=== PATIENT | female | born 1960 | race American Indian/Alaskan Native ===

== ENCOUNTER 2018-10-19 16:26 | Outpatient (CLI) | payer MEDICAID | END 2018-10-19 16:27 | disposition home or self-care (01) | LOC: RAD 16:26 ==

== ENCOUNTER 2018-10-20 18:17 | Inpatient (IN) | payer MEDICAID ==
[2018-10-20 18:36] VITALS: BMI 25.7
--- NOTE | 2018-10-20 18:49 | ED PDOC ---
Arrival/HPI - General Chief Complaint: GI Problem Time Seen by Provider: 10/20/18 18:18 Historian: Patient - History of Present Illness Narrative History of Present Illness (Text): 10/20/18 18:47 58 y/o female with PMH of colon cancer (s/p resection and colostomy) presents to the Emergency department send by PMD Dr. Augustin for evaluation of small bowel obstruction as seen on Xray that was done yesterday. Pt states she has had bertin re epigastric abdominal pain with associated vomiting for approx 1 week. Last episode of vomiting this morning. Associated bloating and decreased ostomy output. Denies fever, chills, back pain, chest pain, SOB, cough, urinary symptoms, or any other associated symptoms. Past Medical History - Provider Review Nursing Documentation Reviewed: Yes - Infectious Disease Hx of Infectious Diseases: None - Cardiac Hx Pacemaker: No - Pulmonary Hx Pneumonia: Yes - Neurological Hx Neurological Disorder: Yes Other/Comment: Reflex dystrophy syndrome - HEENT Hx HEENT Disorder: Yes - Hematological/Oncological Hx Blood Transfusions: Yes Hx Blood Transfusion Reaction: No - Musculoskeletal/Rheumatological Hx Back Pain: Yes (pain both hips radiating to lower extremeties) Hx Falls: No - Gastrointestinal Other/Comment: colostomy 2011 - Genitourinary/Gynecological Hx Genitourinary Disorders: No - Psychiatric Hx Substance Use: Yes (narcotic dependency) - Surgical History Hx Cholecystectomy: Yes Hx Hysterectomy: Yes (partial) Other/Comment: + colostomy - Anesthesia Hx Anesthesia: Yes Hx Anesthesia Reactions: No Hx Malignant Hyperthermia: No Family/Social History - Physician Review Nursing Documentation Reviewed: Yes Family/Social History: No Known Family HX Smoking Status: Never Smoked Hx Alcohol Use: No Hx Substance Use: Yes (narcotic dependency) Allergies/Home Meds Allergies/Adverse Reactions: Allergies Penicillins Allergy (Severe, Verified 10/20/18 18:36) SHORTNESS OF BREATH Sulfa (Sulfonamide Antibiotics) Allergy (Severe, Verified 10/20/18 18:36) SHORTNESS OF BREATH banana Allergy (Mild, Verified 10/20/18 18:36) NAUSEA lactose Allergy (Mild, Verified 10/20/18 18:36) ITCHING Home Medications: Home Meds Medication Instructions Recorded Confirmed Gabapentin [Neurontin] 600 mg PO QID 09/19/15 10/20/18 Amitriptyline [Elavil] 25 mg PO DAILY 03/26/16 10/20/18 Zolpidem [Ambien] 10 mg HS 03/26/16 10/20/18 Methadone 30 mg PO QID 10/20/18 10/20/18 Oxycodone HCl [Roxicodone] 30 mg PO QID 10/20/18 10/20/18 Review of Systems - Review of Systems Constitutional: Normal. absent: Fevers Eyes: Normal. absent: Vision Changes ENT: Normal. absent: Sore Throat, Sinus Congestion Respiratory: Normal. absent: SOB, Cough Cardiovascular: Normal. absent: Chest Pain, Palpitations Gastrointestinal: Abdominal Pain, Stool Changes, Nausea, Vomiting, Appetite Changes Genitourinary Female: Normal. absent: Dysuria, Frequency, Vaginal Bleeding, Vaginal Discharge Musculoskeletal: Normal Skin: Normal Neurological: Normal Endocrine: Normal Hemo/Lymphatic: Normal Psychiatric: Normal Physical Exam Vital Signs Reviewed: Yes Vital Signs Temp Pulse Resp BP Pulse Ox 10/20/18 18:41 98.5 F 93 H 18 119/79 98 Temperature: Afebrile Blood Pressure: Normal Pulse: Regular Respiratory Rate: Normal Appearance: Positive for: Non-Toxic, Uncomfortable Pain Distress: Mild Mental Status: Positive for: Alert and Oriented X 3 - Systems Exam Head: Present: Atraumatic, Normocephalic Pupils: Present: PERRL Extroacular Muscles: Present: EOMI Conjunctiva: Present: Normal Mouth: Present: Moist Mucous Membranes Neck: Present: Normal Range of Motion Respiratory/Chest: Present: Clear to Auscultation. No: Respiratory Distress, Accessory Muscle Use Cardiovascular: Present: Regular Rate and Rhythm, Normal S1, S2, Peripheal Pulses Present Abdomen: Present: Tenderness (epigastrically), Distention, Guarding (throughout), Ostomy Tubes (rightsided ostomy without signs of infection; no output in ostomy bag). No: Normal Bowel Sounds (high pitched, intermittent) Back: Present: Normal Inspection. No: CVA Tenderness Upper Extremity: Present: Normal Inspection, Normal ROM, NORMAL PULSES, Neurovascularly Intact, Capillary Refill < 2s. No: Cyanosis, Edema, Temperature Abnormalties Lower Extremity: Present: Normal Inspection, NORMAL PULSES, Normal ROM, Neurovascularly Intact, Capillary Refill < 2 s. No: Edema, Temperature Abnormalties Neurological: Present: GCS=15, Speech Normal, Motor Func Grossly Intact, Normal Sensory Function Skin: Present: Warm, Dry, Normal Color. No: Rashes Psychiatric: Present: Alert, Oriented x 3, Normal Insight, Normal Concentration, Normal Affect, Normal Mood Medical Decision Making ED Course and Treatment: Initial Plan: * CBC, CMP * Lipase * Troponin * CT Abd/Pelvis with PO and IV contrast * Toradol * Surgical consult 10/20/18 19:55 Pt refused NG tube. Risks vs benefits discussed with pt. Pt continues to refuse. Surgical team requesting CT with PO and IV contrast in addition to UDS. 10/20/18 20:47 Pt drinking PO contrast. Toradol ordered for pain 10/21/18 01:01 CT significant for partial small bowel obstruction. Spoke with primary Dr. Perez Augustin who accepted patient on to his service with diagnosis of partial small bowel obstruction to med/surg floor. Requests IVF. Surgical consult to Dr. Child. - Lab Interpretations Lab Results: 10/20/18 19:15 10/20/18 19:15 Lab Results 10/20/18 20:30: Procalcitonin < 0.05 L 10/20/18 19:15: Sodium 141, Potassium 3.7, Chloride 103, Carbon Dioxide 28, Anion Gap 13, BUN 11, Creatinine 0.6 L, Est GFR ( Amer) > 60, Est GFR (Non-Af Amer) > 60, Random Glucose 78, Calcium 9.4, Magnesium 2.0, Total Bilirubin 0.5, AST 30, ALT 10, Alkaline Phosphatase 73, Troponin I < 0.01, Total Protein 7.9, Albumin 4.0, Globulin 3.9, Albumin/Globulin Ratio 1.0 L, Lipase 49 10/20/18 19:15: PT 12.8 H, INR 1.15, APTT 39.3 H 10/20/18 19:15: WBC 9.4, RBC 4.87, Hgb 11.9 L, Hct 39.3, MCV 80.7, MCH 24.4 L, MCHC 30.3 L, RDW 14.8 H, Plt Count 273, MPV 10.9, Neut % (Auto) 54.4, Lymph % (Auto) 37.9 H, Bradley % (Auto) 6.4 H, Eos % (Auto) 1.1 L, Baso % (Auto) 0.2, Lymph # (Auto) 3.6 H, Bradley # (Auto) 0.6, Eos # (Auto) 0.1, Baso # (Auto) 0.02, Absolute Neuts (auto) 5.14 I have reviewed the lab results: Yes - RAD Interpretation Narrative RAD Interpretations (Text): CT Abdomen and Pelvis: Surgical changes of the colon, unchanged. Right lower quadrant colostomy, unchanged. Partial small bowel obstruction with a transition zone in the right lower quadrant. Passage of the contrast in the distal small bowel is excluding the possibility of a complete obstruction. No evidence of bowel perforation or pneumatosis intestinalis. Diffuse thickening of the distal colon can be secondary to underdistention, spasm versus colitis. 1.5 cm right renal simple cyst. The liver is of uniform attenuation without mass or defect. There is no intra or extrahepatic biliary ductal dilatation. The spleen is normal. The gallbladder is within normal limits. The pancreas is of normal contour and attenuation characteristics. There is no evidence of adrenal mass. Both kidneys demonstrate prompt and equal nephrograms. The kidneys are normal in size, shape and configuration. There is no evidence of renal or ureteral mass. No renal or ureteral calculi are identified. There is no hydroureter or hydronephrosis. No evidence for appendicitis. There is no evidence of abdominal ascites or lymphadenopathy. There is no evidence of intrinsic or extrinsic bladder mass. There is no pelvic ascites or lymphadenopathy. Images of the lung bases show no evidence of pleural or parenchymal mass. There are no pleural effusions. The bony structures are free of lytic or blastic lesions. IMPRESSION: Surgical changes of the colon, unchanged. Right lower quadrant colostomy, unchanged. Partial small bowel obstruction with a transition zone in the right lower quad rant. Passage of the contrast in the distal small bowel is excluding the possibility of a complete obstruction. No evidence of bowel perforation or pneumatosis intestinalis. Diffuse thickening of the distal colon can be secondary to underdistention, spasm versus colitis. 1.5 cm right renal simple cyst. Electronically signed on Oct 21, 2018 12:40:12 AM EDT by: Antonio Chaney M.D., Certified by ABR, MSK, Neuroradiology Die Holder: Radiologist - EKG Interpretation EKG Interpretation (Text): Rate 85; NSR; Normal intervals; No STEMI, nonspecific ST/T wave changes Interpreted by ED Physician: Yes Type: 12 lead EKG Disposition/Present on Arrival - Present on Arrival Any Indicators Present on Arrival: Yes History of DVT/PE: Yes History of Uncontrolled Diabetes: No Urinary Catheter: No History of Decub. Ulcer: No History Surgical Site Infection Following: None - Disposition Have Diagnosis and Disposition been Completed?: Yes Diagnosis: Small bowel obstruction Disposition: HOSPITALIZED Disposition Time: 01:00 Patient Plan: Admission Condition: STABLE
[2018-10-20 19:30] LABS: BASO # 0.02 K/mm3 (0.0-2.0); BASO % 0.2 % (0.0-3.0); EOS # 0.1 (0.0-0.7); EOS % 1.1 % (1.5-5.0); HEMOGLOBIN 11.9 g/dL (12.0-16.0); LYMPH # 3.6 (1.2-3.4); LYMPH % 37.9 % (22.0-35.0); MEAN CELL VOLUME 80.7 fl (80.0-105.0); MEAN CORPUSCULAR HEMOGLOBIN 24.4 pg (25.0-35.0); MEAN CORPUSCULAR HGB CONC 30.3 g/dl (31.0-37.0); MEAN PLATELET VOLUME 10.9 fl (7.0-11.0); MONO # 0.6 (0.1-0.6); MONO % 6.4 % (1.0-6.0); RBC 4.87 10^6/uL (3.5-6.1); RED CELL DISTRIBUTION WIDTH 14.8 % (11.5-14.5); WHITE BLOOD COUNT 9.4 10^3/uL (4.5-11.0)
[2018-10-20 19:38] LABS: ALT/SGPT 10 U/L (7-56); AST/SGOT 30 U/L (14-36); BLOOD UREA NITROGEN 11 mg/dL (7-21); CALCIUM 9.4 mg/dL (8.4-10.5); GFR NON-AFRICAN AMERICAN > 60; LIPASE 49 U/L (23-300)
[2018-10-20 19:41] LABS: INR 1.15; PARTIAL THROMBOPLASTIN TIME 39.3 Seconds (26.9-38.3); PROTHROMBIN TIME 12.8 SECONDS (9.4-12.5)
[2018-10-20 19:50] LABS: TROPONIN I < 0.01 ng/mL
[2018-10-20] MEDS ORDERED: Lactated Ringer's 1,000 ML IV SCH (20:30)
[2018-10-20] MEDS ORDERED: Iohexol 350 MG/100 ML VIAL ONE (20:36)
[2018-10-20] MEDS ORDERED: Iohexol 240 (50 ml) ONE (20:42)
--- NOTE | 2018-10-21 00:07 | CP.PCM.CON ---
<Kirby Nelson - Last Filed: 10/21/18 07:40> History of Present Illness - History of Present Illness History of Present Illness: General Surgery: Dr Child Pt is a 58F well known to surgical service. She has a history of RSD, as well as colon cancer (s/p resection and end colostomy). Pt also has a spinal cord stimulator and has been on longterm narcotics including Oxycodone 30mg Q6H and Methadone 30mg Q6H (per pt). She currently presents with obstruction and obstipation. Pt reports she has been getting progressively more distended since last sunday 10/15. She has not produced stool or gas from her ostomy since wednesday 10/18. During this time she had several episodes of billious emesis. She has not had emesis for past 48 hours however has been unable to eat since tuesday. Pt no longer passes stool from rectum. Prior to this episode pt had daily output from ostomy. She describes her pain as diffuse, located throughout the entire abdomen with the main focus being surrounding the ostomy. LMP unknown, currently menopausal. Pt offered NGT at bedside. She declined. I explained to the pts the benefits of NGT decompression, how this can prevent bowel ischemia, need for operation, and can often resolve the SBO. I also explained the risk of aspiration if she continues to vomit. Pt agreed to take NGT if vomits or does not clinically progress. Review of Systems - Review of Systems All systems: reviewed and no additional remarkable complaints except (as per hpi) Past Patient History - Infectious Disease Hx of Infectious Diseases: None - Past Medical History & Family History Past Medical History?: Yes - Past Social History Smoking Status: Never Smoked - CARDIAC Hx Pacemaker: No - PULMONARY Hx Pneumonia: Yes - NEUROLOGICAL Hx Neurological Disorder: Yes Other/Comment: Reflex dystrophy syndrome - HEENT Hx HEENT Problems: Yes - HEMATOLOGICAL/ONCOLOGICAL Hx Blood Transfusions: Yes Hx Blood Transfusion Reaction: No - MUSCULOSKELETAL/RHEUMATOLOGICAL Hx Back Pain: Yes (pain both hips radiating to lower extremeties) Hx Falls: No - GASTROINTESTINAL Other/Comment: colostomy 2011 - GENITOURINARY/GYNECOLOGICAL Hx Genitourinary Disorders: No - PSYCHIATRIC Hx Substance Use: Yes (narcotic dependency) - SURGICAL HISTORY Hx Cholecystectomy: Yes Hx Hysterectomy: Yes (partial) Other/Comment: + colostomy - ANESTHESIA Hx Anesthesia: Yes Hx Anesthesia Reactions: No Hx Malignant Hyperthermia: No Meds Allergies/Adverse Reactions: Allergies Allergy/AdvReac Type Severity Reaction Status Date / Time Penicillins Allergy Severe SHORTNESS Verified 10/20/18 18:36 OF BREATH Sulfa (Sulfonamide Allergy Severe SHORTNESS Verified 10/20/18 18:36 Antibiotics) OF BREATH banana Allergy Mild NAUSEA Verified 10/20/18 18:36 lactose Allergy Mild ITCHING Verified 10/20/18 18:36 - Medications Medications: Current Medications Lactated Ringer's (Lactated Ringer's) 1,000 mls @ 100 mls/hr IV .Q10H MARTHA Last Admin: 10/20/18 21:01 Dose: 100 mls/hr Ondansetron HCl (Zofran Inj) 4 mg IVP Q4H PRN PRN Reason: Nausea/Vomiting Last Admin: 10/20/18 21:02 Dose: 4 mg Physical Exam - Constitutional Appears: Non-toxic, No Acute Distress - Head Exam Head Exam: NORMAL INSPECTION - ENT Exam ENT Exam: Normal Exam - Respiratory Exam Respiratory Exam: absent: Respiratory Distress - Cardiovascular Exam Cardiovascular Exam: absent: Tachycardia, REGULAR RHYTHM - GI/Abdominal Exam GI & Abdominal Exam: Distended, Firm, Soft, Tenderness (diffuse, worse in LUQ). absent: Guarding, Hernia, Mass, Rebound, Rigid - Extremities Exam Extremities exam: Negative for: pedal edema - Psychiatric Exam Psychiatric exam: Normal Affect, Normal Mood - Skin Skin Exam: Normal Color, Warm Results - Vital Signs Recent Vital Signs: Last Vital Signs Temp 97.6 F 10/21/18 00:00 Pulse 81 10/21/18 00:00 Resp 16 10/21/18 00:00 BP 105/61 10/21/18 00:00 Pulse Ox 98 10/21/18 00:00 - Labs Result Diagrams: 10/20/18 19:15 10/20/18 19:15 Labs: Laboratory Results - last 24 hr 10/20/18 10/20/18 10/20/18 19:15 19:15 19:15 WBC 9.4 RBC 4.87 Hgb 11.9 L Hct 39.3 MCV 80.7 MCH 24.4 L MCHC 30.3 L RDW 14.8 H Plt Count 273 MPV 10.9 Neut % (Auto) 54.4 Lymph % (Auto) 37.9 H Will % (Auto) 6.4 H Eos % (Auto) 1.1 L Baso % (Auto) 0.2 Lymph # (Auto) 3.6 H Will # (Auto) 0.6 Eos # (Auto) 0.1 Baso # (Auto) 0.02 Absolute Neuts (auto) 5.14 PT 12.8 H INR 1.15 APTT 39.3 H Sodium 141 Potassium 3.7 Chloride 103 Carbon Dioxide 28 Anion Gap 13 BUN 11 Creatinine 0.6 L Est GFR ( Amer) > 60 Est GFR (Non-Af Amer) > 60 Random Glucose 78 Calcium 9.4 Magnesium 2.0 Total Bilirubin 0.5 AST 30 ALT 10 Alkaline Phosphatase 73 Troponin I < 0.01 Total Protein 7.9 Albumin 4.0 Globulin 3.9 Albumin/Globulin Ratio 1.0 L Lipase 49 Assessment & Plan - Assessment and Plan (Free Text) Assessment: 58F w/ SBO Plan: admit NPO will place NGT IVF tox screen will consider Relistor given possibility of OIC pt may need OR if does not clinically improve case and imaging reviewed w/ Dr Mateusz Nelson, PGY4 <Perez Child - Last Filed: 10/23/18 20:54> Meds - Medications Medications: Current Medications Potassium Chloride 20 meq/ (Dextrose/Sodium Chloride) 1,010 mls @ 125 mls/hr IV .Q8H5M [facility] Last Admin: 10/23/18 18:46 Dose: 125 mls/hr Ketorolac Tromethamine (Toradol) 30 mg IVP Q8 [facility] Last Admin: 10/23/18 14:12 Dose: Not Given Methadone HCl (Methadone) 20 mg PO BID [facility] Last Admin: 10/23/18 18:47 Dose: 20 mg Metoclopramide HCl (Reglan) 10 mg IVP ACHS [facility] Last Admin: 10/23/18 18:46 Dose: 10 mg Ondansetron HCl (Zofran Inj) 4 mg IVP Q4H PRN PRN Reason: Nausea/Vomiting Last Admin: 10/22/18 23:33 Dose: 4 mg Results - Vital Signs Recent Vital Signs: Last Vital Signs Temp 97.9 F 10/23/18 06:00 Pulse 68 10/23/18 06:00 Resp 18 10/23/18 06:00 BP 118/64 10/23/18 06:00 Pulse Ox 99 10/23/18 06:00 - Labs Result Diagrams: 10/21/18 09:30 10/21/18 09:30 Assessment & Plan - Assessment and Plan (Free Text) Plan: Dx PSBO complicated by SEVERE Chr Constipation(20Yrs) & Opiod Rx(120 oxycocone/120 Methadone) NGT CANNOT pass the posterior choanae(Nose) due to stenosis Some stool in stoma bag--Attempt conservative RX for now This consult done under my direct supervision Lizeth Child MD FACS
[2018-10-21] MEDS ORDERED: Morphine 2 mg/ml ISec IVP STA ×2 (00:49→08:28)
--- NOTE | 2018-10-21 01:21 | CP.PCM.PCO ---
Physician Communication Note - Physician Communication Note Physician Communication Note: SBO/Severe chr constipation/NPO-Observe-? OR PRN
[2018-10-21] MEDS ORDERED: Potassium Ch 20mEq in D5W 20 ML in Dextrose 5%/0.9% NS 1,000 ML IV SCH (08:00)
--- NOTE | 2018-10-21 08:25 | RAD ---
Date of service: 10/20/2018 HISTORY: abd pain COMPARISON: 02/26/2012 TECHNIQUE: 1 view obtained. FINDINGS: LUNGS: No active pulmonary disease. PLEURA: No significant pleural effusion identified, no pneumothorax apparent. CARDIOVASCULAR: No aortic atherosclerotic calcification present. Normal cardiac size. No pulmonary vascular congestion. OSSEOUS STRUCTURES: No significant abnormalities. VISUALIZED UPPER ABDOMEN: Normal. OTHER FINDINGS: None. IMPRESSION: No active disease.
[2018-10-21] MEDS: Potassium Chloride 20 MEQ in Dextrose 5%/0.9% NS 1,000 ML IV SCH ×2 (08:46→17:42)
[2018-10-21] MEDS ORDERED: Lidocaine 2% Jelly (Uro-Jet) TOP ONE (09:46)
[2018-10-21 09:57] LABS: AMYLASE 53 U/L (35-125); BLOOD UREA NITROGEN 9 mg/dL (7-21); CALCIUM 9.1 mg/dL (8.4-10.5); GFR NON-AFRICAN AMERICAN > 60
[2018-10-21] MEDS ORDERED: Lidocaine 2% Jelly (30 ml) TOP ONE (10:15)
[2018-10-21 10:16] LABS: BASO # 0.02 K/mm3 (0.0-2.0); BASO % 0.3 % (0.0-3.0); EOS # 0.1 (0.0-0.7); EOS % 1.7 % (1.5-5.0); HEMOGLOBIN 11.3 g/dL (12.0-16.0); LYMPH # 2.4 (1.2-3.4); LYMPH % 39.8 % (22.0-35.0); MEAN CELL VOLUME 80.5 fl (80.0-105.0); MEAN CORPUSCULAR HEMOGLOBIN 24.8 pg (25.0-35.0); MEAN CORPUSCULAR HGB CONC 30.8 g/dl (31.0-37.0); MEAN PLATELET VOLUME 10.7 fl (7.0-11.0); MONO # 0.4 (0.1-0.6); MONO % 5.9 % (1.0-6.0); RBC 4.56 10^6/uL (3.5-6.1); RED CELL DISTRIBUTION WIDTH 14.7 % (11.5-14.5); WHITE BLOOD COUNT 5.9 10^3/uL (4.5-11.0)
[2018-10-21] MEDS: Sodium Chloride 0.9% 1,000 ML IV SCH ×2 (13:17→22:19)
--- NOTE | 2018-10-21 14:25 | CT ---
Date of service: 10/20/2018 PROCEDURE: CT Abdomen and Pelvis with contrast HISTORY: SBO COMPARISON: CT 09/19/2015 TECHNIQUE: Contrast dose: 100 cc of Omni 350 Radiation dose: Total exam DLP = 298.1 mGy-cm. This CT exam was performed using one or more of the following dose reduction techniques: Automated exposure control, adjustment of the mA and/or kV according to patient size, and/or use of iterative reconstruction technique. FINDINGS: LOWER THORAX: Unremarkable. LIVER: Unremarkable. No gross lesion or ductal dilatation. GALLBLADDER AND BILE DUCTS: Unremarkable. PANCREAS: Unremarkable. No gross lesion or ductal dilatation. SPLEEN: Unremarkable. ADRENALS: Unremarkable. No mass. KIDNEYS AND URETERS: Unremarkable. No hydronephrosis. No solid mass. VASCULATURE: Unremarkable. No aortic aneurysm. No aortic atherosclerotic calcification or mural plaque present. BOWEL: Right upper quadrant colostomy. There is a partial small bowel obstruction with dilatation of the proximal small bowel. Distal small bowel loops are normal in caliber. The exact transition point is difficult to establish. APPENDIX: Normal appendix. PERITONEUM: Unremarkable. No free fluid. No free air. LYMPH NODES: Unremarkable. No enlarged lymph nodes. BLADDER: Unremarkable. REPRODUCTIVE: Unremarkable. BONES: No acute fracture. OTHER FINDINGS: The report concurs with the preliminary [facility] report IMPRESSION: Right upper quadrant colostomy. There is a partial small bowel obstruction with dilatation of the proximal small bowel. Distal small bowel loops are normal in caliber. The exact transition point is difficult to establish.
[2018-10-21 15:55] LABS: PH,URINE 6.5 (4.7-8.0); URINE BILIRUBIN NEGATIVE (NEGATIVE); URINE BLOOD NEGATIVE (NEGATIVE); URINE GLUCOSE (UA) NEGATIVE (NEGATIVE); URINE LEUKOCYTE ESTERASE TRACE Leu/uL (NEGATIVE); URINE PROTEIN NEGATIVE mg/dL (<30 mg/dL); URINE UROBILINOGEN 0.2 E.U./dL (<1 E.U./dL)
[2018-10-21 15:57] LABS: URINE APPEARANCE CLEAR (CLEAR); URINE COLOR LIGHT YELLOW (YELLOW)
[2018-10-21 16:11] LABS: PHENCYCLIDINE, UR NEGATIVE (NEGATIVE)
[2018-10-21 16:14] LABS: BARBITURATES, UR NEGATIVE (NEGATIVE); BENZODIAZEPINES, UR NEGATIVE (NEGATIVE); OPIATES, UR POSITIVE (NEGATIVE)
--- NOTE | 2018-10-21 17:35 | CP.PCM.HP ---
History of Present Illness - History of Present Illness History of Present Illness: History and Physical: 58 yo AA female with lack of colostomy output and vomiting episodes for the past week. The patient was seen on 10/19/2018 and given script for Abdominal X-ray. [place] [facility] [place] showed possible SBO. Patient was told to go to the hospital for further evaluation and especially by surgery. CT done showing partial small bowel obstruction with dilatation of the proximal small bowel. She was told to stop her pain medications on . Normally she is on two pain medications, methadone and oxycodone. 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 Dr. Perez Child performed the colostomy many years ago which resolved her blood pressure and diabetes issues at that time. She has not required treatment for diabetes or hypertension since the colostomy. PMHx: Spinal injuries, reflex sympathetic dystrophy, prior diabetes mellitus that corrected after colostomy PSHx: Colostomy, prior hernia repair, uterine surgery, partial hysterectomy, previous spinal cord stimulator. Allergies: PCN, Sulfa Social Hx: No tobacco, EtOH, or illicit drug use. Active Medications Sodium Chloride (Sodium Chloride 0.9%) 1,000 mls @ 100 mls/hr IV .Q10H [facility] Last Admin: 10/21/18 13:17 Dose: Not Given Potassium Chloride 20 meq/ (Dextrose/Sodium Chloride) 1,010 mls @ 125 mls/hr IV .Q8H5M [facility] Last Admin: 10/21/18 08:46 Dose: 125 mls/hr Ketorolac Tromethamine (Toradol) 30 mg IVP Q8 [facility] Last Admin: 10/21/18 13:29 Dose: 30 mg Ondansetron HCl (Zofran Inj) 4 mg IVP Q4H PRN PRN Reason: Nausea/Vomiting Last Admin: 10/21/18 08:46 Dose: 4 mg Family Hx: none given ROS: No fevers, chills, melena, hematuria, hamtemesis, hematochezia, and diarrhea. Patient with nausea and vomiting. Patient with abdominal discomfort. No chest pain. No depression or anxiety. No vision loss, hearing loss, or loss of consciousness. Present on Admission - Present on Admission Any Indicators Present on Admission: No Review of Systems - Gastrointestinal Gastrointestinal: Change in Bowel Habits Past Patient History - Infectious Disease Hx of Infectious Diseases: None - Past Medical History & Family History Past Medical History?: Yes - Past Social History Smoking Status: Never Smoked - CARDIAC Hx Pacemaker: No - PULMONARY Hx Pneumonia: Yes - NEUROLOGICAL Hx Neurological Disorder: Yes Other/Comment: Reflex dystrophy syndrome - HEENT Hx HEENT Problems: Yes - HEMATOLOGICAL/ONCOLOGICAL Hx Blood Transfusions: Yes Hx Blood Transfusion Reaction: No - MUSCULOSKELETAL/RHEUMATOLOGICAL Hx Back Pain: Yes (pain both hips radiating to lower extremeties) Hx Falls: No - GASTROINTESTINAL Other/Comment: colostomy 2011 - GENITOURINARY/GYNECOLOGICAL Hx Genitourinary Disorders: No - PSYCHIATRIC Hx Substance Use: Yes (narcotic dependency) - SURGICAL HISTORY Hx Cholecystectomy: Yes Hx Hysterectomy: Yes (partial) Other/Comment: + colostomy - ANESTHESIA Hx Anesthesia: Yes Hx Anesthesia Reactions: No Hx Malignant Hyperthermia: No Meds Allergies/Adverse Reactions: Allergies Allergy/AdvReac Type Severity Reaction Status Date / Time Penicillins Allergy Severe SHORTNESS Verified 10/20/18 18:36 OF BREATH Sulfa (Sulfonamide Allergy Severe SHORTNESS Verified 10/20/18 18:36 Antibiotics) OF BREATH banana Allergy Mild NAUSEA Verified 10/20/18 18:36 lactose Allergy Mild ITCHING Verified 10/20/18 18:36 Physical Exam - Constitutional Appears: Non-toxic, In Acute Distress, Chronically Ill - Head Exam Head Exam: ATRAUMATIC, NORMOCEPHALIC - Eye Exam Eye Exam: EOMI, PERRL Pupil Exam: NORMAL ACCOMODATION, PERRL - ENT Exam ENT Exam: Mucous Membranes Moist, Normal External Ear Exam, TM's Normal Bilaterally - Neck Exam Neck exam: Positive for: Full Rom, Normal Inspection - Respiratory Exam Respiratory Exam: Clear to Auscultation Bilateral, NORMAL BREATHING PATTERN. absent: Rales, Rhonchi, Wheezes - Cardiovascular Exam Cardiovascular Exam: REGULAR RHYTHM, RRR, +S1, +S2 - GI/Abdominal Exam GI & Abdominal Exam: Diminished Bowel Sounds, Distended, Firm. absent: Tende rness Additional comments: Colostomy in place. - Extremities Exam Extremities exam: Positive for: full ROM Additional comments: +1 edema of the ankles. - Neurological Exam Neurological exam: Alert, CN II-XII Intact, Oriented x3 - Psychiatric Exam Psychiatric exam: Normal Affect, Normal Mood - Skin Skin Exam: Intact, Normal Color Additional comments: discoloration of the ankles. Results - Vital Signs Recent Vital Signs: Last Vital Signs Temp 87.3 F L 10/21/18 14:00 Pulse 82 10/21/18 14:00 Resp 18 10/21/18 14:00 BP 123/78 10/21/18 14:00 Pulse Ox 99 10/21/18 14:00 - Labs Result Diagrams: 10/21/18 09:30 10/21/18 09:30 Labs: Laboratory Results - last 24 hr 10/20/18 10/20/18 10/20/18 19:15 19:15 19:15 WBC 9.4 RBC 4.87 Hgb 11.9 L Hct 39.3 MCV 80.7 MCH 24.4 L MCHC 30.3 L RDW 14.8 H Plt Count 273 MPV 10.9 Neut % (Auto) 54.4 Lymph % (Auto) 37.9 H [place] % (Auto) 6.4 H Eos % (Auto) 1.1 L Baso % (Auto) 0.2 Lymph # (Auto) 3.6 H [place] # (Auto) 0.6 Eos # (Auto) 0.1 Baso # (Auto) 0.02 Absolute Neuts (auto) 5.14 PT 12.8 H INR 1.15 APTT 39.3 H Sodium 141 Potassium 3.7 Chloride 103 Carbon Dioxide 28 Anion Gap 13 BUN 11 Creatinine 0.6 L Est GFR ( Amer) > 60 Est GFR (Non-Af Amer) > 60 Random Glucose 78 Calcium 9.4 Magnesium 2.0 Total Bilirubin 0.5 AST 30 ALT 10 Alkaline Phosphatase 73 Troponin I < 0.01 Total Protein 7.9 Albumin 4.0 Globulin 3.9 Albumin/Globulin Ratio 1.0 L Amylase Lipase 49 Carcinoembryonic Ag Procalcitonin Urine Color Urine Appearance Urine pH Ur Specific [place] Urine Protein Urine Glucose (UA) Urine Ketones Urine Blood Urine Nitrate Urine Bilirubin Urine Urobilinogen Ur Leukocyte Esterase Urine RBC Urine WBC Ur Epithelial Cells Urine Opiates Screen Urine Methadone Screen Ur Barbiturates Screen Ur Phencyclidine Scrn Ur Amphetamines Screen U Benzodiazepines Scrn U Oth Cocaine Metabols U Cannabinoids Screen 10/20/18 10/21/18 10/21/18 20:30 09:30 09:30 WBC 5.9 D RBC 4.56 Hgb 11.3 L Hct 36.7 MCV 80.5 MCH 24.8 L MCHC 30.8 L RDW 14.7 H Plt Count 223 MPV 10.7 Neut % (Auto) 52.3 Lymph % (Auto) 39.8 H [place] % (Auto) 5.9 Eos % (Auto) 1.7 Baso % (Auto) 0.3 Lymph # (Auto) 2.4 [place] # (Auto) 0.4 Eos # (Auto) 0.1 Baso # (Auto) 0.02 Absolute Neuts (auto) 3.08 PT INR APTT Sodium 137 Potassium 3.7 Chloride 104 Carbon Dioxide 27 Anion Gap 10 BUN 9 Creatinine 0.6 L Est GFR ( Amer) > 60 Est GFR (Non-Af Amer) > 60 Random Glucose 99 Calcium 9.1 Magnesium Total Bilirubin AST ALT Alkaline Phosphatase Troponin I Total Protein Albumin Globulin Albumin/Globulin Ratio Amylase 53 Lipase Carcinoembryonic Ag Procalcitonin < 0.05 L Urine Color Urine Appearance Urine pH Ur Specific [place] Urine Protein Urine Glucose (UA) Urine Ketones Urine Blood Urine Nitrate Urine Bilirubin Urine Urobilinogen Ur Leukocyte Esterase Urine RBC Urine WBC Ur Epithelial Cells Urine Opiates Screen Urine Methadone Screen Ur Barbiturates Screen Ur Phencyclidine Scrn Ur Amphetamines Screen U Benzodiazepines Scrn U Oth Cocaine Metabols U Cannabinoids Screen 10/21/18 10/21/18 10/21/18 09:30 15:00 15:00 WBC RBC Hgb Hct MCV MCH MCHC RDW Plt Count MPV Neut % (Auto) Lymph % (Auto) [place] % (Auto) Eos % (Auto) Baso % (Auto) Lymph # (Auto) [place] # (Auto) Eos # (Auto) Baso # (Auto) Absolute Neuts (auto) PT INR APTT Sodium Potassium Chloride Carbon Dioxide Anion Gap BUN Creatinine Est GFR ( Amer) Est GFR (Non-Af Amer) Random Glucose Calcium Magnesium Total Bilirubin AST ALT Alkaline Phosphatase Troponin I Total Protein Albumin Globulin Albumin/Globulin Ratio Amylase Lipase Carcinoembryonic Ag 4.3 H Procalcitonin Urine Color Light yellow Urine Appearance Clear Urine pH 6.5 Ur Specific [place] <= 1.005 Urine Protein Negative Urine Glucose (UA) Negative Urine Ketones Negative Urine Blood Negative Urine Nitrate Negative Urine Bilirubin Negative Urine Urobilinogen 0.2 Ur Leukocyte Esterase Trace H Urine RBC None Urine WBC 1 - 3 Ur Epithelial Cells 1 - 3 Urine Opiates Screen Positive H Urine Methadone Screen Negative Ur Barbiturates Screen Negative Ur Phencyclidine Scrn Negative Ur Amphetamines Screen Negative U Benzodiazepines Scrn Negative U Oth Cocaine Metabols Negative U Cannabinoids Screen Negative Assessment & Plan - Assessment and Plan (Free Text) Assessment: 58 yo AA female with partial small bowel obstruction. The patient currently NPO. Given oral contrast. Conservative therapy for now. Seen by surgery. Giving IV fluids. May still need surgery depending on progress of the conservative therapy. Case discussed with Dr. Child. Avoid opiates. S urgery following. Thank you for allowing me to participate in the care of the patient, we will follow with you.
--- NOTE | 2018-10-21 19:02 | CARD ---
APPROVED REPORT Date of service: 10/20/2018 EKG Measurement Heart [id number] <Conclusion> Normal sinus rhythm Possible Anterior infarct, age undetermined Abnormal ECG
--- NOTE | 2018-10-21 20:28 | CP.PCM.PCO ---
Physician Communication Note - Physician Communication Note Physician Communication Note: PSBO Cons Rx now-Cover methadon withdrawl
[2018-10-22] MEDS: Potassium Chloride 20 MEQ in Dextrose 5%/0.9% NS 1,000 ML IV SCH ×4 (00:10→21:20)
--- NOTE | 2018-10-22 09:51 | CP.PCM.PN ---
Subjective - Date & Time of Evaluation Date of Evaluation: 10/22/18 Time of Evaluation: 09:49 - Subjective Subjective: Patient seen and examined. Having stool output from stoma. However, remains distended. Denies n/v. Objective - Vital Signs/Intake and Output Vital Signs (last 24 hours): Temp Pulse Resp BP Pulse Ox 98.1 F 73 18 125/73 98 10/22/18 06:00 10/22/18 06:00 10/22/18 06:00 10/22/18 06:00 10/22/18 06:00 Intake and Output: 10/22/18 10/22/18 06:59 18:59 Intake Total 1500 Output Total 800 Balance 1500 -800 - Medications Medications: Current Medications Potassium Chloride 20 meq/ (Dextrose/Sodium Chloride) 1,010 mls @ 125 mls/hr IV .Q8H5M [facility] Last Admin: 10/22/18 09:15 Dose: Not Given Ketorolac Tromethamine (Toradol) 30 mg IVP Q8 [facility] Last Admin: 10/22/18 05:21 Dose: 30 mg Methadone HCl (Methadone) 20 mg PO BID [facility] Last Admin: 10/22/18 09:10 Dose: 20 mg Ondansetron HCl (Zofran Inj) 4 mg IVP Q4H PRN PRN Reason: Nausea/Vomiting Last Admin: 10/21/18 08:46 Dose: 4 mg - Labs Labs: 10/21/18 09:30 10/21/18 09:30 PT 12.8 SECONDS (9.4-12.5) H 10/20/18 19:15 INR 1.15 10/20/18 19:15 APTT 39.3 Seconds (26.9-38.3) H 10/20/18 19:15 - Constitutional Appears: No Acute Distress - Head Exam Head Exam: NORMOCEPHALIC - Eye Exam Eye Exam: EOMI, Normal appearance - ENT Exam ENT Exam: Mucous Membranes Moist - Respiratory Exam Respiratory Exam: NORMAL BREATHING PATTERN - Cardiovascular Exam Cardiovascular Exam: +S1, +S2 - GI/Abdominal Exam GI & Abdominal Exam: Distended, Soft - Neurological Exam Neurological Exam: Alert, Awake, Oriented x3 - Psychiatric Exam Psychiatric exam: Normal Mood - Skin Skin Exam: Dry, Intact, Warm Assessment and Plan - Assessment and Plan (Free Text) Assessment: 58F w/ SBO, resolving Plan: NPO except meds IVF Passing liquid stool s/p dulcolax supp pt may need OR if does not clinically improve Administer dulcolax supp today Monitor bowel function D/w Dr Mateusz Salomon PGY 3
--- NOTE | 2018-10-22 16:00 | CP.PCM.PN ---
Subjective - Date & Time of Evaluation Date of Evaluation: 10/22/18 Time of Evaluation: 14:30 - Subjective Subjective: Internal Medicine Progress Note: October 22, 2018 58 yo AA female with lack of colostomy output and vomiting episodes for the past week. The patient was seen on 10/19/2018 and given script for Abdominal X-ray. Abdominal X[place] done [place] [facility] [place] and showed possible SBO. Patient was told to go to the hospital for further evaluation and especially by surgery. CT done showing partial small bowel obstruction with dilatation of the proximal small bowel. She was told to stop her pain medications on . Normally she is on two pain medications, methadone and oxycodone. 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 Dr. Perez Child performed the colostomy many years ago which resolved her blood pressure and diabetes issues at that time. She has not required treatment for diabetes or hypertension since the colostomy. Patient with partial SBO. Currently NPO. Small amount of output from colostomy. Receiving Dulcolax suppository. Currently no Nausea and vomiting. Methadone restarted by Dr. Child at a reduced dose as the patient still with abdominal pain complaints. Objective - Vital Signs/Intake and Output Vital Signs (last 24 hours): Temp Pulse Resp BP Pulse Ox 98.1 F 73 18 125/73 98 10/22/18 06:00 10/22/18 06:00 10/22/18 06:00 10/22/18 06:00 10/22/18 06:00 Intake and Output: 10/22/18 10/22/18 06:59 18:59 Intake Total 1500 Output Total 800 Balance 1500 -800 - Medications Medications: Current Medications Potassium Chloride 20 meq/ (Dextrose/Sodium Chloride) 1,010 mls @ 125 mls/hr IV .Q8H5M [facility] Last Admin: 10/22/18 09:15 Dose: Not Given Ketorolac Tromethamine (Toradol) 30 mg IVP Q8 [facility] Last Admin: 10/22/18 05:21 Dose: 30 mg Methadone HCl (Methadone) 20 mg PO BID [facility] Last Admin: 10/22/18 09:10 Dose: 20 mg Metoclopramide HCl (Reglan) 10 mg IVP ACHS [facility] Ondansetron HCl (Zofran Inj) 4 mg IVP Q4H PRN PRN Reason: Nausea/Vomiting Last Admin: 10/21/18 08:46 Dose: 4 mg - Labs Labs: 10/21/18 09:30 10/21/18 09:30 PT 12.8 SECONDS (9.4-12.5) H 10/20/18 19:15 INR 1.15 10/20/18 19:15 APTT 39.3 Seconds (26.9-38.3) H 10/20/18 19:15 - Constitutional Appears: Non-toxic, No Acute Distress, Chronically Ill - Head Exam Head Exam: ATRAUMATIC, NORMOCEPHALIC - Eye Exam Eye Exam: EOMI, PERRL Pupil Exam: NORMAL ACCOMODATION, PERRL - ENT Exam ENT Exam: Mucous Membranes Moist, Normal External Ear Exam, TM's Normal Bilaterally - Neck Exam Neck Exam: Full ROM, Normal Inspection - Respiratory Exam Respiratory Exam: Clear to Ausculation Bilateral, NORMAL BREATHING PATTERN. absent: Rales, Rhonchi, Wheezes - Cardiovascular Exam Cardiovascular Exam: REGULAR RHYTHM, RRR, +S1, +S2 - GI/Abdominal Exam GI & Abdominal Exam: Soft, Diminished Bowel Sounds. absent: Distended, Tend erness Additional comments: Colostomy in place. - Extremities Exam Extremities Exam: Full ROM Additional comments: +1 edema of the ankles with dark discoloration. - Neurological Exam Neurological Exam: Alert, Awake, CN II-XII Intact, Oriented x3 - Psychiatric Exam Psychiatric exam: Normal Affect, Normal Mood - Skin Skin Exam: Intact, Normal Color Additional comments: darker discoloration of the ankles. Assessment and Plan - Assessment and Plan (Free Text) Assessment: 58 yo AA female with partial small bowel obstruction. The patient currently NPO. Given oral contrast. Conservative therapy for now. Seen by surgery. Giving IV fluids. May still need surgery depending on progress of the co nservative therapy. Case discussed with Dr. Child. Methadone restarted for pain control. Oxycodone stopped from home meds. Surgery following. Need for OR still not ruled out by surgical team. Thank you for allowing me to participate in the care of the patient, we will follow with you.
[2018-10-23] MEDS: Potassium Chloride 20 MEQ in Dextrose 5%/0.9% NS 1,000 ML IV SCH ×2 (05:54→18:46)
--- NOTE | 2018-10-23 09:08 | CP.PCM.PN ---
Subjective - Date & Time of Evaluation Date of Evaluation: 10/23/18 Time of Evaluation: 09:05 - Subjective Subjective: General Surgery Progress Note for Dr. Child Patient seen and examined at bedside this morning. Output from stoma is noted. Patient admits to bowel movement. Patient denies abdominal distention, however she admits to nausea overnight. Otherwise, Patient denies any new complaints, and states she is "feeling better." Patient denies fever and/or chills. Objective - Vital Signs/Intake and Output Vital Signs (last 24 hours): Temp Pulse Resp BP Pulse Ox 97.9 F 68 18 118/64 99 10/23/18 06:00 10/23/18 06:00 10/23/18 06:00 10/23/18 06:00 10/23/18 06:00 Intake and Output: 10/23/18 10/23/18 06:59 18:59 Output Total 600 Balance -600 - Medications Medications: Current Medications Potassium Chloride 20 meq/ (Dextrose/Sodium Chloride) 1,010 mls @ 125 mls/hr IV .Q8H5M [facility] Last Admin: 10/23/18 05:54 Dose: 125 mls/hr Ketorolac Tromethamine (Toradol) 30 mg IVP Q8 [facility] Last Admin: 10/23/18 05:53 Dose: 30 mg Methadone HCl (Methadone) 20 mg PO BID [facility] Last Admin: 10/22/18 17:21 Dose: 20 mg Metoclopramide HCl (Reglan) 10 mg IVP ACHS [facility] Last Admin: 10/22/18 21:29 Dose: 10 mg Ondansetron HCl (Zofran Inj) 4 mg IVP Q4H PRN PRN Reason: Nausea/Vomiting Last Admin: 10/22/18 23:33 Dose: 4 mg - Labs Labs: 10/21/18 09:30 10/21/18 09:30 PT 12.8 SECONDS (9.4-12.5) H 10/20/18 19:15 INR 1.15 10/20/18 19:15 APTT 39.3 Seconds (26.9-38.3) H 10/20/18 19:15 - Additional Findings Additional findings: - Constitutional Appears: No Acute Distress - Head Exam Head Exam: NORMOCEPHALIC - Eye Exam Eye Exam: EOMI, Normal appearance - ENT Exam ENT Exam: Mucous Membranes Moist - Respiratory Exam Respiratory Exam: NORMAL BREATHING PATTERN - Cardiovascular Exam Cardiovascular Exam: +S1, +S2 - GI/Abdominal Exam GI & Abdominal Exam: Distended, Soft - Neurological Exam Neurological Exam: Alert, Awake, Oriented x3 - Psychiatric Exam Psychiatric exam: Normal Mood - Skin Skin Exam: Dry, Intact, Warm Assessment and Plan - Assessment and Plan (Free Text) Assessment: Patient is a 58-year-old F with SBO; resolving Plan: Advance diet to clear liquid diet today Continue IVF Passing liquid stool s/p dulcolax supp Administer additional dulcolax supp today Patient may require OR if does not clinically improve Continue to monitor bowel function Discussed with Dr. Mateusz Ram PGY1
--- NOTE | 2018-10-23 18:33 | CP.PCM.PN ---
Subjective - Date & Time of Evaluation Date of Evaluation: 10/23/18 Time of Evaluation: 17:00 - Subjective Subjective: Internal Medicine Progress Note: October 23, 2018 58 yo AA female with lack of colostomy output and vomiting episodes for the past week. The patient was seen on 10/19/2018 and given script for Abdominal X-ray. Abdominal X-ray done here at [facility] [place] and showed possible SBO. Patient was told to go to the hospital for further evaluation and especially by surgery. CT done showing partial small bowel obstruction with dilatation of the proximal small bowel. She was told to stop her pain medications on . Normally she is on two pain medications, methadone and oxycodone. 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 Dr. Perez Child performed the colostomy many years ago which resolved her blood pressure and diabetes issues at that time. She has not required treatment for diabetes or hypertension since the colostomy. Patient with partial SBO. Currently NPO. Still small to occassional moderate amount of output from colostomy. Receiving Dulcolax suppositories. Currently no Nausea and vomiting. Methadone restarted by Dr. Child at a reduced dose as the patient still with abdominal pain complaints. Patient abdomen is still distended. Objective - Vital Signs/Intake and Output Vital Signs (last 24 hours): Temp Pulse Resp BP Pulse Ox 97.9 F 68 18 118/64 99 10/23/18 06:00 10/23/18 06:00 10/23/18 06:00 10/23/18 06:00 10/23/18 06:00 Intake and Output: 10/23/18 10/23/18 06:59 18:59 Output Total 600 Balance -600 - Medications Medications: Current Medications Potassium Chloride 20 meq/ (Dextrose/Sodium Chloride) 1,010 mls @ 125 mls/hr IV .Q8H5M [facility] Last Admin: 10/23/18 05:54 Dose: 125 mls/hr Ketorolac Tromethamine (Toradol) 30 mg IVP Q8 [facility] Last Admin: 10/23/18 14:12 Dose: Not Given Methadone HCl (Methadone) 20 mg PO BID [facility] Last Admin: 10/23/18 10:14 Dose: 20 mg Metoclopramide HCl (Reglan) 10 mg IVP ACHS [facility] Last Admin: 10/23/18 12:05 Dose: Not Given Ondansetron HCl (Zofran Inj) 4 mg IVP Q4H PRN PRN Reason: Nausea/Vomiting Last Admin: 10/22/18 23:33 Dose: 4 mg - Labs Labs: 10/21/18 09:30 10/21/18 09:30 PT 12.8 SECONDS (9.4-12.5) H 10/20/18 19:15 INR 1.15 10/20/18 19:15 APTT 39.3 Seconds (26.9-38.3) H 10/20/18 19:15 - Constitutional Appears: Non-toxic, No Acute Distress, Chronically Ill - Head Exam Head Exam: ATRAUMATIC, NORMOCEPHALIC - Eye Exam Eye Exam: EOMI, PERRL Pupil Exam: NORMAL ACCOMODATION, PERRL - ENT Exam ENT Exam: Mucous Membranes Moist, Normal External Ear Exam, TM's Normal Bilaterally - Neck Exam Neck Exam: Full ROM, Normal Inspection - Respiratory Exam Respiratory Exam: Clear to Ausculation Bilateral, NORMAL BREATHING PATTERN. absent: Rales, Rhonchi, Wheezes - Cardiovascular Exam Cardiovascular Exam: REGULAR RHYTHM, RRR, +S1, +S2 - GI/Abdominal Exam GI & Abdominal Exam: Distended, Soft, Hypoactive Bowel Sounds. absent: Tenderness Additional comments: Colostomy in place. - Extremities Exam Extremities Exam: Full ROM Additional comments: +1 edema of the ankles with dark discoloration. - Neurological Exam Neurological Exam: Alert, Awake, CN II-XII Intact, Oriented x3 - Psychiatric Exam Psychiatric exam: Normal Affect, Normal Mood - Skin Skin Exam: Intact, Normal Color Additional comments: darker discoloration of the ankles. Assessment and Plan - Assessment and Plan (Free Text) Assessment: 58 yo AA female with partial small bowel obstruction. The patient currently NPO. Given oral contrast. Conservative therapy for now. Seen by surgery. Giving IV fluids. May still need surgery depending on progress of the conservat alisa therapy. Case discussed with Dr. Child. Methadone restarted for pain control. Oxycodone stopped from home meds. Surgery following. Need for OR still not ruled out by surgical team. Patient with some output from colostomy but still small. Patient remains distended. Thank you for allowing me to participate in the care of the patient, we will follow with you.
[2018-10-24 07:14] LABS: BASO # 0.01 K/mm3 (0.0-2.0); BASO % 0.2 % (0.0-3.0); EOS # 0.1 (0.0-0.7); EOS % 1.4 % (1.5-5.0); HEMOGLOBIN 11.1 g/dL (12.0-16.0); LYMPH # 2.2 (1.2-3.4); MEAN CELL VOLUME 80.4 fl (80.0-105.0); MEAN CORPUSCULAR HEMOGLOBIN 24.7 pg (25.0-35.0); MEAN CORPUSCULAR HGB CONC 30.7 g/dl (31.0-37.0); MEAN PLATELET VOLUME 10.2 fl (7.0-11.0); MONO # 0.4 (0.1-0.6); MONO % 5.6 % (1.0-6.0); RBC 4.49 10^6/uL (3.5-6.1); RED CELL DISTRIBUTION WIDTH 14.3 % (11.5-14.5); WHITE BLOOD COUNT 6.5 10^3/uL (4.5-11.0)
[2018-10-24 08:02] LABS: ALB/GLOB RATIO 1.1 (1.1-1.8); ALBUMIN 3.7 g/dL (3.0-4.8); ALT/SGPT 14 U/L (7-56); AST/SGOT 21 U/L (14-36); BLOOD UREA NITROGEN < 2 mg/dL (7-21); GFR NON-AFRICAN AMERICAN > 60
--- NOTE | 2018-10-24 08:56 | CP.PCM.PN ---
Subjective - Date & Time of Evaluation Date of Evaluation: 10/24/18 Time of Evaluation: 08:52 - Subjective Subjective: General Surgery Progress Note for Dr. Child Patient seen and examined at bedside this morning. Output from stoma is noted. Patient admits to bowel movement, however Patient continues to complain of nausea overnight. Patient vomited once overnight after clear liquid diet. Otherwise, Patient denies any new complaints; denies fever and/or chills. Objective - Vital Signs/Intake and Output Vital Signs (last 24 hours): Temp Pulse Resp BP Pulse Ox 98.2 F 65 16 127/60 97 10/24/18 06:00 10/24/18 06:00 10/24/18 06:00 10/24/18 06:00 10/24/18 06:00 Intake and Output: 10/24/18 10/24/18 06:59 18:59 Intake Total 3540 Output Total 1000 Balance 2540 - Medications Medications: Current Medications Potassium Chloride 20 meq/ (Dextrose/Sodium Chloride) 1,010 mls @ 125 mls/hr IV .Q8H5M [facility] Last Admin: 10/23/18 18:46 Dose: 125 mls/hr Ketorolac Tromethamine (Toradol) 30 mg IVP Q8 [facility] Last Admin: 10/24/18 06:18 Dose: Not Given Methadone HCl (Methadone) 20 mg PO BID [facility] Last Admin: 10/23/18 18:47 Dose: 20 mg Metoclopramide HCl (Reglan) 10 mg IVP ACHS [facility] Last Admin: 10/24/18 08:45 Dose: 10 mg Ondansetron HCl (Zofran Inj) 4 mg IVP Q4H PRN PRN Reason: Nausea/Vomiting Last Admin: 10/22/18 23:33 Dose: 4 mg - Labs Labs: 10/24/18 06:45 10/24/18 06:45 PT 12.8 SECONDS (9.4-12.5) H 10/20/18 19:15 INR 1.15 10/20/18 19:15 APTT 39.3 Seconds (26.9-38.3) H 10/20/18 19:15 - Additional Findings Additional findings: - Constitutional Appears: No Acute Distress - Head Exam Head Exam: NORMOCEPHALIC - Eye Exam Eye Exam: EOMI, Normal appearance - ENT Exam ENT Exam: Mucous Membranes Moist - Respiratory Exam Respiratory Exam: NORMAL BREATHING PATTERN - Cardiovascular Exam Cardiovascular Exam: +S1, +S2 - GI/Abdominal Exam GI & Abdominal Exam: Distended, Soft - Neurological Exam Neurological Exam: Alert, Awake, Oriented x3 - Psychiatric Exam Psychiatric exam: Normal Mood - Skin Skin Exam: Dry, Intact, Warm Assessment and Plan - Assessment and Plan (Free Text) Assessment: Patient is a 58-year-old F with SBO; resolving Plan: Patient did not tolerate clear liquid diet last night, thus, Patient placed as NPO Continue IVF Patient with nausea and vomiting, thus, CT abdomen with PO contrast ordered Patient may require OR if does not clinically improve Continue to monitor bowel function Discussed with Dr. Mateusz Ram PGY1
--- NOTE | 2018-10-24 09:03 | CP.PCM.PN ---
Subjective - Date & Time of Evaluation Date of Evaluation: 10/24/18 Time of Evaluation: 08:58 - Subjective Subjective: General Surgery Progress Note for Dr. Montague Patient seen and evaluated at bedside this morning. Patient continues to complain of bilateral inguinal tenderness. Patient states he is passing gas. Patient otherwise denies fever, chills, nausea and/or vomiting. Objective - Vital Signs/Intake and Output Vital Signs (last 24 hours): Temp Pulse Resp BP Pulse Ox 98.2 F 65 16 127/60 97 10/24/18 06:00 10/24/18 06:00 10/24/18 06:00 10/24/18 06:00 10/24/18 06:00 Intake and Output: 10/24/18 10/24/18 06:59 18:59 Intake Total 3540 Output Total 1000 Balance 2540 - Medications Medications: Current Medications Potassium Chloride 20 meq/ (Dextrose/Sodium Chloride) 1,010 mls @ 125 mls/hr IV .Q8H5M [facility] Last Admin: 10/23/18 18:46 Dose: 125 mls/hr Ketorolac Tromethamine (Toradol) 30 mg IVP Q8 [facility] Last Admin: 10/24/18 06:18 Dose: Not Given Methadone HCl (Methadone) 20 mg PO BID [facility] Last Admin: 10/23/18 18:47 Dose: 20 mg Metoclopramide HCl (Reglan) 10 mg IVP ACHS [facility] Last Admin: 10/24/18 08:45 Dose: 10 mg Ondansetron HCl (Zofran Inj) 4 mg IVP Q4H PRN PRN Reason: Nausea/Vomiting Last Admin: 10/22/18 23:33 Dose: 4 mg - Labs Labs: 10/24/18 06:45 10/24/18 06:45 PT 12.8 SECONDS (9.4-12.5) H 10/20/18 19:15 INR 1.15 10/20/18 19:15 APTT 39.3 Seconds (26.9-38.3) H 10/20/18 19:15 - Additional Findings Additional findings: - Constitutional Appears: No Acute Distress - Head Exam Head Exam: ATRAUMATIC - Eye Exam Eye Exam: EOMI - ENT Exam ENT Exam: Mucous Membranes Moist - Respiratory Exam Respiratory Exam: NORMAL BREATHING PATTERN - Cardiovascular Exam Cardiovascular Exam: absent: Tachycardia - GI/Abdominal Exam GI & Abdominal Exam: Hernia, Tenderness. absent: Distended Additional comments: mild rebound tenderness in RLE b/l inguinal hernias, fat containing, non-incarcerated - Neurological Exam Neurological exam: Alert - Skin Skin Exam: Dry, Intact, Normal Color Assessment and Plan - Assessment and Plan (Free Text) Assessment: 59 year old male presents with bilateral fat-containing, non-incarcerated inguinal hernias and radiological findings concerning for enterocolitis. Plan: Continue empiric antibiotics Antiemetics as needed for nausea Since bilateral inguinal hernias are reducible and nonincarcerated, and the patient has active infection, hernia repair at this time is not indicated Patient may follow up for elective hernia repair once infection resolves Discussed with Dr. Eddi Ram PGY1
[2018-10-24] MEDS: Potassium Chloride 20 MEQ in Dextrose 5%/0.9% NS 1,000 ML IV SCH ×2 (10:53→22:11)
[2018-10-24] MEDS ORDERED: Barium Sulfate Susp 2.1% w/v, 2.0% w/w 450 mL Bottle PO ONE (12:22)
[2018-10-24] MEDS ORDERED: Iohexol 240 (50 ml) ONE (15:12)
--- NOTE | 2018-10-24 18:28 | CP.PCM.PN ---
Subjective - Date & Time of Evaluation Date of Evaluation: 10/24/18 Time of Evaluation: 17:00 - Subjective Subjective: Internal Medicine Progress Note: October 24, 2018 58 yo AA female with lack of colostomy output and vomiting episodes for the past week. The patient was seen on 10/19/2018 and given script for Abdominal X-ray. Abdominal X-ray done here at [facility] and showed possible SBO. Patient was told to go to the hospital for further evaluation and especially by surgery. CT done showing partial small bowel obstruction with dilatation of the proximal small bowel. She was told to stop her pain medications on . Normally she is on two pain medications, methadone and oxycodone. 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 Dr. Perez Child performed the colostomy many years ago which resolved her blood pressure and diabetes issues at that time. She has not required treatment for diabetes or hypertension since the colostomy. Patient with partial SBO. Currently NPO. Still small to occassional moderate amount of output from colostomy. Receiving Dulcolax suppositories. Currently no Nausea and vomiting. Methadone restarted by Dr. Child at a reduced dose as the patient still with abdominal pain complaints. Patient abdomen is still distended. She was not able to tolerate liquid diet overnight and vomited. Made NPO by surgery team and repeat CT scan pending. Objective - Vital Signs/Intake and Output Vital Signs (last 24 hours): Temp Pulse Resp BP Pulse Ox 98.2 F 65 16 127/60 97 10/24/18 06:00 10/24/18 06:00 10/24/18 06:00 10/24/18 06:00 10/24/18 06:00 Intake and Output: 10/24/18 10/24/18 06:59 18:59 Intake Total 3540 Output Total 1000 Balance 2540 - Medications Medications: Current Medications Potassium Chloride 20 meq/ (Dextrose/Sodium Chloride) 1,010 mls @ 125 mls/hr IV .Q8H5M [facility] Last Admin: 10/24/18 10:53 Dose: 125 mls/hr Ketorolac Tromethamine (Toradol) 30 mg IVP Q8 [facility] Last Admin: 10/24/18 13:27 Dose: 30 mg Methadone HCl (Methadone) 20 mg PO BID [facility] Last Admin: 10/24/18 10:55 Dose: 20 mg Metoclopramide HCl (Reglan) 10 mg IVP ACHS [facility] Last Admin: 10/24/18 17:11 Dose: 10 mg Ondansetron HCl (Zofran Inj) 4 mg IVP Q4H PRN PRN Reason: Nausea/Vomiting Last Admin: 10/22/18 23:33 Dose: 4 mg - Labs Labs: 10/24/18 06:45 10/24/18 06:45 PT 12.8 SECONDS (9.4-12.5) H 10/20/18 19:15 INR 1.15 10/20/18 19:15 APTT 39.3 Seconds (26.9-38.3) H 10/20/18 19:15 - Constitutional Appears: Non-toxic, No Acute Distress, Chronically Ill - Head Exam Head Exam: ATRAUMATIC, NORMOCEPHALIC - Eye Exam Eye Exam: EOMI, PERRL Pupil Exam: NORMAL ACCOMODATION, PERRL - ENT Exam ENT Exam: Mucous Membranes Moist, Normal External Ear Exam, TM's Normal Bilaterally - Neck Exam Neck Exam: Full ROM, Normal Inspection - Respiratory Exam Respiratory Exam: Clear to Ausculation Bilateral, NORMAL BREATHING PATTERN. absent: Rales, Rhonchi, Wheezes - Cardiovascular Exam Cardiovascular Exam: REGULAR RHYTHM, RRR, +S1, +S2 - GI/Abdominal Exam GI & Abdominal Exam: Distended, Soft, Tenderness (mild), Hypoactive Bowel Sounds Additional comments: Colostomy in place. - Extremities Exam Extremities Exam: Full ROM Additional comments: +1 edema of the ankles with dark discoloration. - Neurological Exam Neurological Exam: Alert, Awake, CN II-XII Intact, Oriented x3 - Psychiatric Exam Psychiatric exam: Normal Affect, Normal Mood - Skin Skin Exam: Intact, Normal Color Additional comments: darker discoloration of the ankles. Assessment and Plan - Assessment and Plan (Free Text) Assessment: 58 yo AA female with partial small bowel obstruction. The patient currently NPO. Given oral contrast. Conservative therapy for now. Seen by surgery. Giving IV fluids. May still need surgery depending on progress of the conservative therapy. Case discussed with Dr. Child. Methadone restarted for pain control. Oxycodone stopped from home meds. Surgery following. Need for OR still not ruled out by surgical team. She was unable to tolerate liquid diet overnight. She is now NPO again and CT scan of the abdomen and pelvis with PO contrast ordered and pending. Patient with some output from colostomy but still small. Patient remains distended. Thank you for allowing me to participate in the care of the patient, we will follow with you.
[2018-10-25] MEDS: Potassium Chloride 20 MEQ in Dextrose 5%/0.9% NS 1,000 ML IV SCH ×4 (06:07→21:46)
--- NOTE | 2018-10-25 09:53 | CT ---
Date of service: 10/24/2018 PROCEDURE: CT Abdomen and Pelvis without intravenous contrast HISTORY: eval SBO COMPARISON: 10/20/2018 TECHNIQUE: Without contrast.. Contrast dose: Radiation dose: Total exam DLP = 241.24 mGy-cm. This CT exam was performed using one or more of the following dose reduction techniques: Automated exposure control, adjustment of the mA and/or kV according to patient size, and/or use of iterative reconstruction technique. FINDINGS: LOWER THORAX: Unremarkable. LIVER: Unremarkable. No gross lesion or ductal dilatation. GALLBLADDER AND BILE DUCTS: Unremarkable. PANCREAS: Unremarkable. No gross lesion or ductal dilatation. SPLEEN: Unremarkable. ADRENALS: Unremarkable. No mass. KIDNEYS AND URETERS: Unremarkable. No hydronephrosis. No solid mass. VASCULATURE: Unremarkable. No aortic aneurysm. No aortic atherosclerotic calcification or mural plaque present. BOWEL: There improvement in the pattern of small bowel obstruction. There is some persistent mural thickening in the distal small bowel loops which may represent enteritis. There is an ostomy in the right upper quadrant. Contrast is seen within the lumen and the bag. APPENDIX: Unremarkable. Normal appendix. PERITONEUM: Unremarkable. No free fluid. No free air. LYMPH NODES: Unremarkable. No enlarged lymph nodes. BLADDER: Unremarkable. REPRODUCTIVE: Unremarkable. BONES: No acute fracture. OTHER FINDINGS: The report concurs with the preliminary [facility] report IMPRESSION: There improvement in the pattern of small bowel obstruction. There is some persistent mural thickening in the distal small bowel loops which may represent enteritis. There is an ostomy in the right upper quadrant. Contrast is seen within the lumen and the bag.
--- NOTE | 2018-10-25 10:59 | CP.PCM.PCO ---
Physician Communication Note - Physician Communication Note Physician Communication Note: Rx Full liquids/Reglan [id number]/cont [id number]
--- NOTE | 2018-10-25 12:05 | CP.PCM.PN ---
Subjective - Date & Time of Evaluation Date of Evaluation: 10/25/18 Time of Evaluation: 12:02 - Subjective Subjective: General Surgery Progress Note for Dr. Child Patient seen and examined at bedside this morning. No complaints overnight. Output from stoma is noted. Patient admits to bowel movement. Patient tolerating clear liquid diet. Otherwise, Patient denies any new complaints; denies nausea, vomiting, fever and/or chills. Objective - Vital Signs/Intake and Output Vital Signs (last 24 hours): Temp Pulse Resp BP Pulse Ox 97.9 F 65 18 139/66 98 10/25/18 06:00 10/25/18 06:00 10/25/18 06:00 10/25/18 06:00 10/25/18 06:00 Intake and Output: 10/25/18 10/25/18 06:59 18:59 Intake Total 0 Output Total 800 500 Balance -800 -500 - Medications Medications: Current Medications Potassium Chloride 20 meq/ (Dextrose/Sodium Chloride) 1,010 mls @ 125 mls/hr IV .Q8H5M [facility] Last Admin: 10/25/18 06:07 Dose: 125 mls/hr Ketorolac Tromethamine (Toradol) 30 mg IVP Q8 [facility] Last Admin: 10/25/18 06:11 Dose: 30 mg Methadone HCl (Methadone) 20 mg PO BID [facility] Last Admin: 10/25/18 09:47 Dose: 20 mg Metoclopramide HCl (Reglan) 10 mg PO 0600,1130,1630,2200 [facility] Last Admin: 10/25/18 11:53 Dose: 10 mg Ondansetron HCl (Zofran Inj) 4 mg IVP Q4H PRN PRN Reason: Nausea/Vomiting Last Admin: 10/22/18 23:33 Dose: 4 mg - Labs Labs: 10/24/18 06:45 10/24/18 06:45 PT 12.8 SECONDS (9.4-12.5) H 10/20/18 19:15 INR 1.15 10/20/18 19:15 APTT 39.3 Seconds (26.9-38.3) H 10/20/18 19:15 - Additional Findings Additional findings: - Constitutional Appears: No Acute Distress - Head Exam Head Exam: NORMOCEPHALIC - Eye Exam Eye Exam: EOMI, Normal appearance - ENT Exam ENT Exam: Mucous Membranes Moist - Respiratory Exam Respiratory Exam: NORMAL BREATHING PATTERN - Cardiovascular Exam Cardiovascular Exam: +S1, +S2 - GI/Abdominal Exam GI & Abdominal Exam: Distended, Soft - Neurological Exam Neurological Exam: Alert, Awake, Oriented x3 - Psychiatric Exam Psychiatric exam: Normal Mood - Skin Skin Exam: Dry, Intact, Warm Assessment and Plan - Assessment and Plan (Free Text) Assessment: Patient is a 58-year-old F with SBO; resolving Plan: Clear Liquid Diet, advance as tolerating Continue IVF at 125cc/hr CT abdomen with PO contrast results noted; resolving SBO, possible enteritis Patient may require OR if does not clinically improve Continue to monitor bowel function Discussed with Dr. Mateusz Ram PGY1
--- NOTE | 2018-10-25 14:22 | CP.PCM.PN ---
Subjective - Date & Time of Evaluation Date of Evaluation: 10/25/18 Time of Evaluation: 14:00 - Subjective Subjective: Internal Medicine Progress Note: October 25, 2018 58 yo AA female with lack of colostomy output and vomiting episodes for the past week. The patient was seen on 10/19/2018 and given script for Abdominal X-ray. Abdominal X-ray done here at [facility] and showed possible SBO. Patient was told to go to the hospital for further evaluation and especially by surgery. CT done showing partial small bowel obstruction with dilatation of the proximal small bowel. She was told to stop her pain medications on . Normally she is on two pain medications, methadone and oxycodone. 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 Dr. Perez Child performed the colostomy many years ago which resolved her blood pressure and diabetes issues at that time. She has not required treatment for diabetes or hypertension since the colostomy. Patient with partial SBO. Currently NPO. Still small to occassional moderate amount of output from colostomy. Receiving Dulcolax suppositories. Currently no Nausea and vomiting. Methadone restarted by Dr. Child at a reduced dose as the patient still with abdominal pain complaints. Patient abdomen is still distended. CT of Abdomen and Pelvis showing some resolvement of the SBO but signs of distal small bowel enteritis. She was restarted on liquid diet again. Surgery has not ruled out need for OR as or yet. Objective - Vital Signs/Intake and Output Vital Signs (last 24 hours): Temp Pulse Resp BP Pulse Ox 97.9 F 65 18 139/66 98 10/25/18 06:00 10/25/18 06:00 10/25/18 06:00 10/25/18 06:00 10/25/18 06:00 Intake and Output: 10/25/18 10/25/18 06:59 18:59 Intake Total 0 Output Total 800 500 Balance -800 -500 - Medications Medications: Current Medications Potassium Chloride 20 meq/ (Dextrose/Sodium Chloride) 1,010 mls @ 125 mls/hr IV .Q8H5M [facility] Last Admin: 10/25/18 06:07 Dose: 125 mls/hr Ketorolac Tromethamine (Toradol) 30 mg IVP Q8 [facility] Last Admin: 10/25/18 06:11 Dose: 30 mg Methadone HCl (Methadone) 20 mg PO BID [facility] Last Admin: 10/25/18 09:47 Dose: 20 mg Metoclopramide HCl (Reglan) 10 mg PO 0600,1130,1630,2200 [facility] Last Admin: 10/25/18 11:53 Dose: 10 mg Ondansetron HCl (Zofran Inj) 4 mg IVP Q4H PRN PRN Reason: Nausea/Vomiting Last Admin: 10/22/18 23:33 Dose: 4 mg - Labs Labs: 10/24/18 06:45 10/24/18 06:45 PT 12.8 SECONDS (9.4-12.5) H 10/20/18 19:15 INR 1.15 10/20/18 19:15 APTT 39.3 Seconds (26.9-38.3) H 10/20/18 19:15 - Constitutional Appears: Non-toxic, No Acute Distress, Chronically Ill - Head Exam Head Exam: ATRAUMATIC, NORMOCEPHALIC - Eye Exam Eye Exam: EOMI, PERRL Pupil Exam: NORMAL ACCOMODATION, PERRL - ENT Exam ENT Exam: Mucous Membranes Moist, Normal External Ear Exam, TM's Normal Bilaterally - Neck Exam Neck Exam: Full ROM, Normal Inspection - Respiratory Exam Respiratory Exam: Clear to Ausculation Bilateral, NORMAL BREATHING PATTERN. absent: Rales, Rhonchi, Wheezes - Cardiovascular Exam Cardiovascular Exam: REGULAR RHYTHM, RRR, +S1, +S2 - GI/Abdominal Exam GI & Abdominal Exam: Distended, Soft, Tenderness (mild), Normal Bowel Sounds Additional comments: Colostomy in place. - Extremities Exam Extremities Exam: Full ROM Additional comments: +1 edema of the ankles with dark discoloration. - Neurological Exam Neurological Exam: Alert, Awake, CN II-XII Intact, Oriented x3 - Psychiatric Exam Psychiatric exam: Normal Affect, Normal Mood - Skin Skin Exam: Intact, Normal Color Additional comments: darker discoloration of the ankles. Assessment and Plan - Assessment and Plan (Free Text) Assessment: 58 yo AA female with partial small bowel obstruction. The patient currently NPO. Given oral contrast. Conservative therapy for now. Seen by surgery. Giving IV fluids. May still need surgery depending on progress of the conservative therapy. Case discussed with Dr. Child. Methadone restarted for pain control. Oxycodone stopped from home meds. Surgery following. Need for OR still not ruled out by surgical team. She was unable to tolerate liquid diet overnight. She is now NPO again and CT scan of the abdomen and pelvis with PO contrast ordered and pending. Patient with some output from colostomy but still small. Patient remains distended. CT abdomen and pelvis from 10/24/2018 showing resolving SBO but signs of distal small bowel enteritis. Thank you for allowing me to participate in the care of the patient, we will follow with you.
[2018-10-26 02:13] VITALS: RESP 18
[2018-10-26 06:57] LABS: HEMOGLOBIN 11.6 g/dL (12.0-16.0); MEAN CELL VOLUME 79.5 fl (80.0-105.0); MEAN CORPUSCULAR HEMOGLOBIN 24.8 pg (25.0-35.0); MEAN CORPUSCULAR HGB CONC 31.2 g/dl (31.0-37.0); MEAN PLATELET VOLUME 10.4 fl (7.0-11.0); RBC 4.68 10^6/uL (3.5-6.1); RED CELL DISTRIBUTION WIDTH 14.4 % (11.5-14.5); WHITE BLOOD COUNT 6.3 10^3/uL (4.5-11.0)
[2018-10-26 07:13] LABS: ALB/GLOB RATIO 1.2 (1.1-1.8); ALBUMIN 3.8 g/dL (3.0-4.8); ALT/SGPT 16 U/L (7-56); AST/SGOT 22 U/L (14-36); CALCIUM 9.5 mg/dL (8.4-10.5); GFR NON-AFRICAN AMERICAN > 60
[2018-10-26 07:36] LABS: BLOOD UREA NITROGEN < 2 mg/dL (7-21)
[2018-10-26] MEDS: Potassium Chloride 20 MEQ in Dextrose 5%/0.9% NS 1,000 ML IV SCH (09:02)
--- NOTE | 2018-10-26 10:33 | CP.PCM.PN ---
Subjective - Date & Time of Evaluation Date of Evaluation: 10/26/18 Time of Evaluation: 10:31 - Subjective Subjective: General Surgery Progress Note for Dr. Child Patient seen and examined at bedside this morning. No acute events overnight. Output from stoma is noted. Patient admits to bowel movement. Patient tolerating liquid diet. Otherwise, Patient denies any new complaints; denies nausea, vomiting, fever and/or chills. Objective - Vital Signs/Intake and Output Vital Signs (last 24 hours): Temp Pulse Resp BP Pulse Ox 98.4 F 78 18 124/72 98 10/26/18 06:00 10/26/18 06:00 10/26/18 06:00 10/26/18 06:00 10/26/18 06:00 Intake and Output: 10/26/18 10/26/18 06:59 18:59 Intake Total 1730 Output Total 250 Balance 1480 - Medications Medications: Current Medications Potassium Chloride 20 meq/ (Dextrose/Sodium Chloride) 1,010 mls @ 50 mls/hr IV .[id number] [facility] Last Admin: 10/26/18 09:02 Dose: 50 mls/hr Methadone HCl (Methadone) 20 mg PO BID [facility] Last Admin: 10/25/18 17:38 Dose: 20 mg Metoclopramide HCl (Reglan) 5 mg PO 0600,1130,1630,2200 [facility] Ondansetron HCl (Zofran Inj) 4 mg IVP Q4H PRN PRN Reason: Nausea/Vomiting Last Admin: 10/22/18 23:33 Dose: 4 mg - Labs Labs: 10/26/18 06:30 10/26/18 06:30 PT 12.8 SECONDS (9.4-12.5) H 10/20/18 19:15 INR 1.15 10/20/18 19:15 APTT 39.3 Seconds (26.9-38.3) H 10/20/18 19:15 - Additional Findings Additional findings: - Constitutional Appears: No Acute Distress - Head Exam Head Exam: NORMOCEPHALIC - Eye Exam Eye Exam: EOMI, Normal appearance - ENT Exam ENT Exam: Mucous Membranes Moist - Respiratory Exam Respiratory Exam: NORMAL BREATHING PATTERN - Cardiovascular Exam Cardiovascular Exam: +S1, +S2 - GI/Abdominal Exam GI & Abdominal Exam: Distended, Soft - Neurological Exam Neurological Exam: Alert, Awake, Oriented x3 - Psychiatric Exam Psychiatric exam: Normal Mood - Skin Skin Exam: Dry, Intact, Warm Assessment and Plan - Assessment and Plan (Free Text) Assessment: Patient is a 58-year-old F with SBO; resolving Plan: Diet changed to regular diet today, if Patient tolerates, Patient can be discharged to home from surgical team standpoint Continue IVF at 50cc/hr CT abdomen with PO contrast results noted; resolving SBO, possible enteritis Continue to monitor bowel function Discussed with Dr. Mateusz Ram PGY1
--- NOTE | 2018-10-26 11:15 | CP.PCM.PCO ---
Physician Communication Note - Physician Communication Note Physician Communication Note: OK D/C:[id number] Oxycodone
[2018-10-26 14:46] VITALS: O2SAT 100
--- NOTE | 2018-10-26 19:34 | CP.PCM.PN ---
Subjective - Date & Time of Evaluation Date of Evaluation: 10/26/18 Time of Evaluation: 17:30 - Subjective Subjective: Internal Medicine Progress Note: October 26, 2018 58 yo AA female with lack of colostomy output and vomiting episodes for the past week. The patient was seen on 10/19/2018 and given script for Abdominal X-ray. Abdominal X-ray done here at [facility] [place] and showed possible SBO. Patient was told to go to the hospital for further evaluation and especially by surgery. CT done showing partial small bowel obstruction with dilatation of the proximal small bowel. She was told to stop her pain medications on . Normally she is on two pain medications, methadone and oxycodone. 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 Dr. Perez Child performed the colostomy many years ago which resolved her blood pressure and diabetes issues at that time. She has not required treatment for diabetes or hypertension since the colostomy. Patient with partial SBO. Currently NPO. Still small to occassional moderate amount of output from colostomy. Receiving Dulcolax suppositories. Currently no Nausea and vomiting. Methadone restarted by Dr. Child at a reduced dose as the patient still with abdominal pain complaints. Patient abdomen is mildly distended but with increased stool output through colostomy. CT of Abdomen and Pelvis showing some resolvement of the SBO but signs of distal small bowel enteritis. She was restarted on liquid diet again. Surgery has ruled out need for OR and cleared patient for discharge. Objective - Vital Signs/Intake and Output Vital Signs (last 24 hours): Temp Pulse Resp BP Pulse Ox 98.2 F 69 18 144/71 100 10/26/18 14:00 10/26/18 14:00 10/26/18 14:00 10/26/18 14:00 10/26/18 14:00 Intake and Output: 10/26/18 10/27/18 18:59 06:59 Intake Total 840 Balance 840 - Medications Medications: Current Medications Potassium Chloride 20 meq/ (Dextrose/Sodium Chloride) 1,010 mls @ 50 mls/hr IV .[id number] [facility] Last Admin: 10/26/18 09:02 Dose: 50 mls/hr Methadone HCl (Methadone) 20 mg PO BID [facility] Last Admin: 10/26/18 10:41 Dose: 20 mg Metoclopramide HCl (Reglan) 5 mg PO 0600,1130,1630,2200 [facility]THA Last Admin: 10/26/18 17:41 Dose: 5 mg Ondansetron HCl (Zofran Inj) 4 mg IVP Q4H PRN PRN Reason: Nausea/Vomiting Last Admin: 10/22/18 23:33 Dose: 4 mg - Labs Labs: 10/26/18 06:30 10/26/18 06:30 PT 12.8 SECONDS (9.4-12.5) H 10/20/18 19:15 INR 1.15 10/20/18 19:15 APTT 39.3 Seconds (26.9-38.3) H 10/20/18 19:15 - Constitutional Appears: Non-toxic, No Acute Distress, Chronically Ill - Head Exam Head Exam: ATRAUMATIC, NORMOCEPHALIC - Eye Exam Eye Exam: EOMI, PERRL Pupil Exam: NORMAL ACCOMODATION, PERRL - ENT Exam ENT Exam: Mucous Membranes Moist, Normal External Ear Exam, TM's Normal Bilaterally - Neck Exam Neck Exam: Full ROM, Normal Inspection - Respiratory Exam Respiratory Exam: Clear to Ausculation Bilateral, NORMAL BREATHING PATTERN. absent: Rales, Rhonchi, Wheezes - Cardiovascular Exam Cardiovascular Exam: REGULAR RHYTHM, RRR, +S1, +S2 - GI/Abdominal Exam GI & Abdominal Exam: Distended, Soft, Normal Bowel Sounds. absent: Tenderness Additional comments: Colostomy in place. stool output present. - Extremities Exam Extremities Exam: Full ROM Additional comments: +1 edema of the ankles with dark discoloration. - Neurological Exam Neurological Exam: Alert, Awake, CN II-XII Intact, Oriented x3 - Psychiatric Exam Psychiatric exam: Normal Affect, Normal Mood - Skin Skin Exam: Intact, Normal Color Assessment and Plan - Assessment and Plan (Free Text) Assessment: 58 yo AA female with partial small bowel obstruction. The patient currently NPO. Given oral contrast. Conservative therapy for now. Seen by surgery. Giving IV fluids. May still need surgery depending on progress of the conservative therapy. Case discussed with Dr. Child. Methadone restarted for pain control. Oxycodone stopped from home meds. Surgery following. Need for OR still not ruled out by surgical team. She was unable to tolerate liquid diet overnight. She is now NPO again and CT scan of the abdomen and pelvis with PO contrast ordered and pending. Patient with some output from colostomy but still small. Patient remains distended. CT abdomen and pelvis from 10/24/2018 showing resolving SBO but signs of distal small bowel enteritis. The patient is feeling better. Increasing stool output in colostomy. Tolerating solids. For discharge tomorrow.
[2018-10-27 00:55] VITALS: BP 163/95; PULSE 68; TEMP 98
[2018-10-27] MEDS: Potassium Chloride 20 MEQ in Dextrose 5%/0.9% NS 1,000 ML IV SCH ×2 (05:56→13:02)
--- NOTE | 2018-10-27 11:37 | CP.PCM.PCO ---
Physician Communication Note - Physician Communication Note Physician Communication Note: OK d/c home-officef/u
--- NOTE | 2018-10-27 14:20 | CP.PCM.DIS ---
Provider - Provider Date of Admission: 10/21/18 00:59 Attending physician: Perez Augustin MD Primary care physician: Perez Augustin MD Consults: 10/20/18 20:52 General Surgery Consult Routine Comment: Consulting Provider: Perez Cihld Consulting Physician: Perez Child Reason for Consult: SBO Time Spent in preparation of Discharge (in minutes): 35 Hospital Course - Lab Results Lab Results: Micro Results 10/21/18 15:00 Urine Random Urine Culture - Final 10-50,000 CFU/ML. MULTIPLE SPECIES. PROBABLE CONTAMINATION. Most Recent Lab Values WBC 6.3 10^3/uL (4.5-11.0) 10/26/18 06:30 RBC 4.68 10^6/uL (3.5-6.1) 10/26/18 06:30 Hgb 11.6 g/dL (12.0-16.0) L 10/26/18 06:30 Hct 37.2 % (36.0-48.0) 10/26/18 06:30 MCV 79.5 fl (80.0-105.0) L 10/26/18 06:30 MCH 24.8 pg (25.0-35.0) L 10/26/18 06:30 MCHC 31.2 g/dl (31.0-37.0) 10/26/18 06:30 RDW 14.4 % (11.5-14.5) 10/26/18 06:30 Plt Count 218 10^3/uL (120.0-450.0) 10/26/18 06:30 MPV 10.4 fl (7.0-11.0) 10/26/18 06:30 Neut % (Auto) 58.8 % (50.0-68.0) 10/24/18 06:45 Lymph % (Auto) 34.0 % (22.0-35.0) 10/24/18 06:45 [place] % (Auto) 5.6 % (1.0-6.0) 10/24/18 06:45 Eos % (Auto) 1.4 % (1.5-5.0) L 10/24/18 06:45 Baso % (Auto) 0.2 % (0.0-3.0) 10/24/18 06:45 Lymph # (Auto) 2.2 (1.2-3.4) 10/24/18 06:45 [place] # (Auto) 0.4 (0.1-0.6) 10/24/18 06:45 Eos # (Auto) 0.1 (0.0-0.7) 10/24/18 06:45 Baso # (Auto) 0.01 K/mm3 (0.0-2.0) 10/24/18 06:45 Absolute Neuts (auto) 3.82 (1.4-6.5) 10/24/18 06:45 PT 12.8 SECONDS (9.4-12.5) H 10/20/18 19:15 INR 1.15 10/20/18 19:15 APTT 39.3 Seconds (26.9-38.3) H 10/20/18 19:15 Sodium 138 mmol/L (132-148) 10/26/18 06:30 Potassium 3.9 mmol/L (3.6-5.0) 10/26/18 06:30 Chloride 103 mmol/L (98-107) 10/26/18 06:30 Carbon Dioxide 29 mmol/L (21-33) 10/26/18 06:30 Anion Gap 10 (10-20) 10/26/18 06:30 BUN < 2 mg/dL (7-21) L 10/26/18 06:30 Creatinine 0.5 mg/dl (0.7-1.2) L 10/26/18 06:30 Est GFR ( Amer) > 60 10/26/18 06:30 Est GFR (Non-Af Amer) > 60 10/26/18 06:30 Random Glucose 86 mg/dL (70-110) 10/26/18 06:30 Calcium 9.5 mg/dL (8.4-10.5) 10/26/18 06:30 Phosphorus 3.8 mg/dL (2.5-4.5) 10/24/18 06:45 Magnesium 1.5 mg/dL (1.7-2.2) L 10/24/18 06:45 Total Bilirubin 0.4 mg/dL (0.2-1.3) 10/26/18 06:30 AST 22 U/L (14-36) 10/26/18 06:30 ALT 16 U/L (7-56) 10/26/18 06:30 Alkaline Phosphatase 59 U/L (38-126) 10/26/18 06:30 Troponin I < 0.01 ng/mL 10/20/18 19:15 Total Protein 6.8 g/dL (5.8-8.3) 10/26/18 06:30 Albumin 3.8 g/dL (3.0-4.8) 10/26/18 06:30 Globulin 3.1 gm/dL 10/26/18 06:30 Albumin/Globulin Ratio 1.2 (1.1-1.8) 10/26/18 06:30 Amylase 53 U/L (35-125) 10/21/18 09:30 Lipase 49 U/L (23-300) 10/20/18 19:15 Carcinoembryonic Ag 4.3 ng/mL (0.0-3.0) H 10/21/18 09:30 Procalcitonin < 0.05 NG/ML (0.19-0.49) L 10/20/18 20:30 Urine Color Light yellow (YELLOW) 10/21/18 15:00 Urine Appearance Clear (CLEAR) 10/21/18 15:00 Urine pH 6.5 (4.7-8.0) 10/21/18 15:[address] <= 1.005 (1.005-1.035) 10/21/18 15:00 Urine Protein Negative mg/dL (<30 mg/dL) 10/21/18 15:00 Urine Glucose (UA) Negative mg/dL (NEGATIVE) 10/21/18 15:00 Urine Ketones Negative mg/dL (NEGATIVE) 10/21/18 15:00 Urine Blood Negative (NEGATIVE) 10/21/18 15:00 Urine Nitrate Negative (NEGATIVE) 10/21/18 15:00 Urine Bilirubin Negative (NEGATIVE) 10/21/18 15:00 Urine Urobilinogen 0.2 E.U./dL (<1 E.U./dL) 10/21/18 15:00 Ur Leukocyte Esterase Trace [place]/uL (NEGATIVE) H 10/21/18 15:00 Urine RBC None /hpf (0-2) 10/21/18 15:00 Urine WBC 1 - 3 /hpf (0-6) 10/21/18 15:00 Ur Epithelial Cells 1 - 3 /hpf (0-5) 10/21/18 15:00 Urine Opiates Screen Positive (NEGATIVE) H 10/21/18 15:00 Urine Methadone Screen Negative (NEGATIVE) 10/21/18 15:00 Ur Barbiturates Screen Negative (NEGATIVE) 10/21/18 15:00 Ur Phencyclidine Scrn Negative (NEGATIVE) 10/21/18 15:00 Ur Amphetamines Screen Negative (NEGATIVE) 10/21/18 15:00 U Benzodiazepines Scrn Negative (NEGATIVE) 10/21/18 15:00 U Oth Cocaine Metabols Negative (NEGATIVE) 10/21/18 15:00 U Cannabinoids Screen Negative (NEGATIVE) 10/21/18 15:00 - Hospital Course Hospital Course: 58 yo AA female with lack of colostomy output and vomiting episodes for the past week. The patient was seen on 10/19/2018 and given script for Abdominal X-ray. Abdominal X-ray done here at [facility] [place] and showed possible SBO. Patient was told to go to the hospital for further evaluation and especially by surgery. CT done showing partial small bowel obstruction with dilatation of the proximal small bowel. She was told to stop her pain medications on . Normally she is on two pain medications, methadone and oxycodone. 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 Dr. Perez Child performed the colostomy many years ago which resolved her blood pressure and diabetes issues at that time. She has not required treatment for diabetes or hypertension since the colostomy. Patient with partial SBO. Currently NPO. Still small to occassional moderate amount of output from colostomy. Receiving Dulcolax suppositories. Currently no Nausea and vomiting. Methadone restarted by Dr. Child at a reduced dose as the patient still with abdominal pain complaints. Patient abdomen is mildly distended but with increased stool output through colostomy. CT of Abdomen and Pelvis showing some resolvement of the SBO but signs of distal small bowel enteritis. She was restarted on liquid diet again. Surgery has ruled out need for OR and cleared patient for discharge. - Date & Time of H&P Date of H&P: 10/21/18 Time of H&P: 16:54 Discharge Exam - Head Exam Head Exam: ATRAUMATIC, NORMOCEPHALIC - Eye Exam Eye Exam: EOMI, PERRL Pupil Exam: NORMAL ACCOMODATION, PERRL - ENT Exam ENT Exam: Mucous Membranes Moist, Normal External Ear Exam, TM's Normal Bilaterally - Neck Exam Neck exam: Full Rom, Normal Inspection - Respiratory Exam Respiratory Exam: Clear to PA & Lateral, NORMAL BREATHING PATTERN. absent: Rales, Rhonchi, Wheezes - Cardiovascular Exam Cardiovascular Exam: REGULAR RHYTHM, RRR, +S1, +S2 - GI/Abdominal Exam GI & Abdominal Exam: Distended, Normal Bowel Sounds, Soft. absent: Tenderness Additional comments: Colostomy in place. stool output present. - Extremities Exam Extremities exam: full ROM Additional comments: +1 edema of the ankles with dark discoloration. - Neurological Exam Neurological exam: Alert, CN II-XII Intact, Oriented x3 - Psychiatric Exam Psychiatric exam: Normal Affect, Normal Mood - Skin Skin Exam: Intact, Normal Color Discharge Plan - Follow Up Plan Condition: STABLE Disposition: HOME/ ROUTINE Instructions: Small Bowel Obstruction, Quitting Smoking Additional Instructions: 58 yo AA female with partial small bowel obstruction. The patient currently NPO. Given oral contrast. Conservative therapy for now. Seen by surgery. Giving IV fluids. May still need surgery depending on progress of the conservative therapy. Case discussed with Dr. Child. Methadone restarted for pain control. Oxycodone stopped from home meds. Surgery following. Need for OR still not ruled out by surgical team. She was unable to tolerate liquid diet overnight. She is now NPO again and CT scan of the abdomen and pelvis with PO contrast ordered and pending. Patient with some output from colostomy but still small. Patient remains distended. CT abdomen and pelvis from 10/24/2018 showing resolving SBO but signs of distal small bowel enteritis. The patient is feeling better. Increasing stool output in colostomy. Tolerating solids. For discharge today.
== END 2018-10-27 14:50 | disposition home or self-care (01) | DRG 181 ==
LOC: ED 18:17 → ERH 10-21 00:59 → 5RSO 10-21 03:01
PROVIDERS: ADMIT Internal Medicine Infectious Disease; ATTEND Internal Medicine Infectious Disease
DX: K56.600 Partial intestinal obstruction, unspecified as to cause (principal); G90.50 Complex regional pain syndrome I, unspecified; Z93.3 Colostomy status; N28.1 Cyst of kidney, acquired; Z85.038 Personal history of other malignant neoplasm of large intestine

== ENCOUNTER 2018-12-07 21:19 | Inpatient (IN) | payer MEDICAID ==
--- NOTE | 2018-12-07 22:01 | ED PDOC ---
Arrival/HPI - General Chief Complaint: GI Problem Time Seen by Provider: 12/07/18 21:23 Historian: Patient - History of Present Illness Narrative History of Present Illness (Text): 12/07/18 22:01 58 year old female, whose past medical history includes colon cancer (s/p resection and colostomy) presents to the Emergency department for worsening abdominal pain and vomiting. Patient informs pain began 4 days prior, and vomiting 3 days prior. Patient states the last time she was in the hospital,a month prior, she had bowel obstruction due to a "twisted small bowel". Patient states she is having the same kind of pain today. Patient states she has noticed more abdominal swelling. Patient denies any fevers, chills, headache, dizziness, chest pain, shortness of breath, dyspnea on exertion, cough, diaphoresis, back pain, neck pain, or any other complaint. PMD Dr. Augustin Time/Duration: < week Symptom Onset: Gradual Symptom Course: Unchanged Quality: Cramping Activities at Onset: Light Context: Home Past Medical History - Provider Review Nursing Documentation Reviewed: Yes Primary Care Provider: Perez Augustin - Infectious Disease Hx of Infectious Diseases: None - Cardiac Hx Pacemaker: No - Pulmonary Hx Pneumonia: Yes - Neurological Hx Neurological Disorder: Yes Other/Comment: Reflex dystrophy syndrome - HEENT Hx HEENT Disorder: Yes - Hematological/Oncological Hx Blood Transfusions: Yes Hx Blood Transfusion Reaction: No - Musculoskeletal/Rheumatological Hx Back Pain: Yes (pain both hips radiating to lower extremeties) Hx Falls: No - Gastrointestinal Other/Comment: colostomy 2011 - Genitourinary/Gynecological Hx Genitourinary Disorders: No - Psychiatric Hx Substance Use: Yes (narcotic dependency) - Surgical History Hx Cholecystectomy: Yes Hx Hysterectomy: Yes (partial) Other/Comment: + colostomy - Anesthesia Hx Anesthesia: Yes Hx Anesthesia Reactions: No Hx Malignant Hyperthermia: No Family/Social History - Physician Review Nursing Documentation Reviewed: Yes Family/Social History: No Known Family HX Smoking Status: Never Smoked Hx Alcohol Use: No Hx Substance Use: Yes (narcotic dependency) Allergies/Home Meds Allergies/Adverse Reactions: Allergies Penicillins Allergy (Severe, Verified 12/07/18 21:34) SHORTNESS OF BREATH Sulfa (Sulfonamide Antibiotics) Allergy (Severe, Verified 12/07/18 21:34) SHORTNESS OF BREATH banana Allergy (Mild, Verified 12/07/18 21:34) NAUSEA lactose Allergy (Mild, Verified 12/07/18 21:34) ITCHING Home Medications: Home Meds Medication Instructions Recorded Confirmed Zolpidem [Ambien] 10 mg HS 03/26/16 12/07/18 Review of Systems - Physician Review All systems were reviewed & negative as marked: Yes - Review of Systems Constitutional: absent: Fevers, Night Sweats Respiratory: absent: SOB, Cough Cardiovascular: absent: Chest Pain, TAYLOR Gastrointestinal: Abdominal Pain, Nausea, Vomiting Musculoskeletal: absent: Back Pain, Neck Pain Neurological: absent: Headache, Dizziness Endocrine: absent: Diaphoresis Physical Exam - Physical Exam Narrative Physical Exam (Text): 12/07/18 22:07 Gen: VS reviewed, alert, well developed, well nourished, nontoxic, moderate distress secondary to pain. ENT: normal pharynx, dry mucous membranes. Eye: EOMI, PERRL. Neck: no JVD, supple, no adenopathy. CV: regular rate, regular rhythm, no rubs, no murmur, no gallops, S1, S2, pulses equal and strong. Pulm: no distress, clear to auscultation, no wheeze, no rhonchi, breath sounds equal, no rales. Abd: abdominal distention, diffusely tender, somewhat tense, colostomy site clean dry and intact. Ext: no edema. Skin: good color, no rash, no cyanosis. Psych: responds appropriately to questions, normal affect. Neuro: oriented x 3, CN2-12 intact grossly, motor intact, sensation intact. Vital Signs Reviewed: Yes Vital Signs Temp Pulse Resp BP Pulse Ox 12/07/18 21:31 98.6 F 102 H 16 115/89 100 Temperature: Afebrile Blood Pressure: Normal Pulse: Tachycardic Respiratory Rate: Normal Appearance: Positive for: Well-Appearing, Non-Toxic, Comfortable Pain Distress: None Mental Status: Positive for: Alert and Oriented X 3 Medical Decision Making ED Course and Treatment: 12/07/18 22:09 Impression: 58 year old female presents with abdominal pain and nausea. Plan: -- Type and Screen -- VBG -- CT ABD & Pelvis -- EKG -- CMP, Lipase -- CBC, Platelets -- Chest X-ray -- Morphine, Zofran -- Reassess and disposition Prior Visits: Notes and results from previous visits were reviewed. 12/07/18 23:36 patient cannot tolerate oral contrast, patient has also refused NGT, will forego oral con and expedite CT. 12/08/18 00:[address] augustin, patient to be admitted for bowel obstruction, surgical consult to dr. moses. - RAD Interpretation Narrative RAD Interpretations (Text): 12/07/18 22:54 cxr my read: multiple dilated bowel loops seen, no ptx, no wide mediastinum 12/08/18 04:50 CT SCAN OF THE ABDOMEN AND PELVIS WITH CONTRAST. CLINICAL HISTORY: Abdominal pain. TECHNIQUE: Multiple axial and coronal CT images were obtained through the abdomen and pelvis after administration of intravenous and oral contrast material. COMPARISON: 10/24/2018 06:43 PM EDT: CT\\SD\\SR: ABD PELVIS PO CONTRAS COMMENTS: Bilateral basilar atelectatic pulmonary changes, increased. Moderate partial small bowel obstruction. Transition zone in the right lower quadrant without perforation or pneumatosis intestinalis. Unremarkable enterostomy in the right lower quadrant. Minimal amount of reactive fluid in the right upper quadrant. Moderate pericardial effusion. The liver is of uniform attenuation without mass or defect. There is no intra or extrahepatic biliary ductal dilatation. The spleen is normal. The pancreas is of normal contour and attenuation characteristics. There is no evidence of adrenal mass. Bilateral scattered simple renal cysts with the largest measuring 1.5 cm. Both kidneys demonstrate prompt and equal nephrograms. The kidneys are normal in size, shape and configuration. There is no evidence of renal or ureteral mass. No renal or ureteral calculi are identified. There is no hydroureter or hydronephrosis. No evidence for appendicitis. There is no evidence of intrinsic or extrinsic bladder mass. There are no pleural effusions. The bony structures are free of lytic or blastic lesions. IMPRESSION: Bilateral basilar atelectatic pulmonary changes, increased. Moderate partial small bowel obstruction. Transition zone in the right lower quadrant without perforation or pneumatosis intestinalis. Unremarkable enterostomy in the right lower quadrant. Minimal amount of reactive fluid in the right upper quadrant. Moderate pericardial effusion. Significantly distended bladder suggestive of retention. Radiology Orders: 12/07/18 21:47 CHEST PORTABLE [RAD] Stat 12/07/18 21:57 ABDOMEN & PELVIS [ABD PELVIS PO & IV CONTRAST] [CT] [facility] Technical Writer: Radiologist - EKG Interpretation EKG Interpretation (Text): 12/07/18 23:03 Sinus tach @107bpm Normal QRS, Normal axis Nonspecific T wave abnormality Interpreted by ED Physician: Yes Type: 12 lead EKG - Medication Orders Current Medication Orders: Sodium Chloride (Sodium Chloride 0.9%) 1,000 mls @ 150 mls/hr IV .[id number] MARTHA Discontinued Medications Morphine Sulfate (Morphine) 6 mg IVP STAT STA Stop: 12/07/18 21:47 Ondansetron HCl (Zofran Inj) 4 mg IVP STAT STA Stop: 12/07/18 21:47 Procedures - Time-Out Type of Procedure: venipuncture necessitating physician skill Site of Procedure: right ac Physician Name: korin - Additional Procedures Progress: 20g IV placed in the right AC, ultrasound guided, good draw and flush, patient tolerated procedure well. - Scribe Statement The provider has reviewed the documentation as recorded by the Scribe John Yanez Provider Scribe Attestation: All medical record entries made by the Scribe were at my direction and personally dictated by me. I have reviewed the chart and agree that the record accurately reflects my personal performance of the history, physical exam, medical decision making, and the department course for this patient. I have also personally directed, reviewed, and agree with the discharge instructions and disposition. Disposition/Present on Arrival - Present on Arrival Any Indicators Present on Arrival: No History of DVT/PE: Yes History of Uncontrolled Diabetes: No Urinary Catheter: No History of Decub. Ulcer: No History Surgical Site Infection Following: None - Disposition Have Diagnosis and Disposition been Completed?: Yes Diagnosis: Bowel obstruction Disposition: HOSPITALIZED Disposition Time: 23:36 Patient Plan: Admission Patient Problems: Current Active Problems Problem Status Onset Bowel obstruction Acute Condition: GUARDED
[2018-12-07] MEDS ORDERED: Iohexol 240 (50 ml) ONE (22:27)
[2018-12-07] MEDS: Sodium Chloride 0.9% 1,000 ML IV SCH (22:48)
[2018-12-07 22:56] LABS: BASO # 0.01 K/mm3 (0.0-2.0); BASO % 0.1 % (0.0-3.0); LYMPH # 1.9 (1.2-3.4); LYMPH % 18.4 % (22.0-35.0); MEAN CELL VOLUME 79.5 fl (80.0-105.0); MEAN CORPUSCULAR HEMOGLOBIN 24.9 pg (25.0-35.0); MEAN CORPUSCULAR HGB CONC 31.3 g/dl (31.0-37.0); MEAN PLATELET VOLUME 10.6 fl (7.0-11.0); MONO # 0.7 (0.1-0.6); MONO % 6.3 % (1.0-6.0); RBC 5.62 10^6/uL (3.5-6.1); RED CELL DISTRIBUTION WIDTH 15.3 % (11.5-14.5); WHITE BLOOD COUNT 10.4 10^3/uL (4.5-11.0)
[2018-12-07 23:00] LABS: VENOUS BLOOD GAS BASE EXCESS 4.2 mmol/L (0.0-2.0); VENOUS BLOOD GAS PO2 52 mm/Hg (30-55); VENOUS BLOOD PH 7.39 (7.32-7.43)
[2018-12-07 23:05] LABS: INR 1.14; PARTIAL THROMBOPLASTIN TIME 36.2 Seconds (26.9-38.3); PROTHROMBIN TIME 12.7 SECONDS (9.4-12.5)
--- NOTE | 2018-12-07 23:45 | CP.PCM.CON ---
<Jerry Mcgrath - Last Filed: 12/07/18 23:47> History of Present Illness - History of Present Illness History of Present Illness: SURGERY NOTE FOR DR. CHILD Reason: Abdominal pain 58F presents to the ED with abdominal pain. Patient states pain is diffuse in the abdomen and started on Tuesday. She states she has had this pain before multiple times in the past. 7 years ago she had an operation for obstruction leaving her with an ostomy. Patient states pain is associated with nausea, vomiting, and chills. She states she has not had much stool out her ostomy since Tuesday and denies air out the ostomy. PMH: Chronic pain PSH: Hartmanns procedure, revision of parastomal hernia Social: Denies tobacco, alcohol, illicit drug use Allergies: NKDA Past Patient History - Infectious Disease Hx of Infectious Diseases: None - Past Medical History & Family History Past Medical History?: Yes - Past Social History Smoking Status: Never Smoked - CARDIAC Hx Pacemaker: No - PULMONARY Hx Pneumonia: Yes - NEUROLOGICAL Hx Neurological Disorder: Yes Other/Comment: Reflex dystrophy syndrome - HEENT Hx HEENT Problems: Yes - HEMATOLOGICAL/ONCOLOGICAL Hx Blood Transfusions: Yes Hx Blood Transfusion Reaction: No - MUSCULOSKELETAL/RHEUMATOLOGICAL Hx Back Pain: Yes (pain both hips radiating to lower extremeties) Hx Falls: No - GASTROINTESTINAL Other/Comment: colostomy 2011 - GENITOURINARY/GYNECOLOGICAL Hx Genitourinary Disorders: No - PSYCHIATRIC Hx Substance Use: Yes (narcotic dependency) - SURGICAL HISTORY Hx Cholecystectomy: Yes Hx Hysterectomy: Yes (partial) Other/Comment: + colostomy - ANESTHESIA Hx Anesthesia: Yes Hx Anesthesia Reactions: No Hx Malignant Hyperthermia: No Meds Allergies/Adverse Reactions: Allergies Allergy/AdvReac Type Severity Reaction Status Date / Time Penicillins Allergy Severe SHORTNESS Verified 12/07/18 21:34 OF BREATH Sulfa (Sulfonamide Allergy Severe SHORTNESS Verified 12/07/18 21:34 Antibiotics) OF BREATH banana Allergy Mild NAUSEA Verified 12/07/18 21:34 lactose Allergy Mild ITCHING Verified 12/07/18 21:34 - Medications Medications: Current Medications Sodium Chloride (Sodium Chloride 0.9%) 1,000 mls @ 150 mls/hr IV .Q6H40M MARTHA Last Admin: 12/07/18 22:48 Dose: 150 mls/hr Physical Exam - Constitutional Appears: Other (uncomfortable from nausea, pain) - Eye Exam Eye Exam: EOMI, PERRL - ENT Exam ENT Exam: Mucous Membranes Moist - Respiratory Exam Respiratory Exam: Clear to Auscultation Bilateral, NORMAL BREATHING PATTERN - Cardiovascular Exam Cardiovascular Exam: REGULAR RHYTHM, +S1, +S2 - GI/Abdominal Exam GI & Abdominal Exam: Distended, Tenderness. absent: Firm, Guarding, Rebound, Rigid Additional comments: full abdomen, distended Ostomy with no output - Extremities Exam Extremities exam: Negative for: pedal edema, tenderness - Neurological Exam Neurological exam: Alert, Oriented x3 - Psychiatric Exam Psychiatric exam: Normal Affect, Normal Mood - Skin Skin Exam: Dry, Intact, Normal Color, Warm Results - Vital Signs Recent Vital Signs: Last Vital Signs Temp 98.6 F 12/07/18 21:31 Pulse 103 H 12/07/18 23:18 Resp 18 12/07/18 23:18 BP 125/87 12/07/18 23:18 Pulse Ox 93 L 12/07/18 23:18 - Labs Result Diagrams: 12/07/18 22:45 Labs: Laboratory Results - last 24 hr 12/07/18 12/07/18 12/07/18 22:45 22:45 22:45 WBC 10.4 D RBC 5.62 Hgb 14.0 D Hct 44.7 MCV 79.5 L MCH 24.9 L MCHC 31.3 RDW 15.3 H Plt Count 290 MPV 10.6 Neut % (Auto) 75.2 H Lymph % (Auto) 18.4 L Jenkins % (Auto) 6.3 H Eos % (Auto) 0.0 L Baso % (Auto) 0.1 Lymph # (Auto) 1.9 Jenkins # (Auto) 0.7 H Eos # (Auto) 0.0 Baso # (Auto) 0.01 Absolute Neuts (auto) 7.81 H PT 12.7 H INR 1.14 APTT 36.2 pO2 52 VBG pH 7.39 VBG pCO2 50.0 VBG HCO3 30.3 H VBG Total CO2 31.8 H VBG O2 Sat (Calc) 88.3 H VBG Base Excess 4.2 H VBG Potassium 3.8 Sodium 140.0 Chloride 102.0 Glucose 120 H Lactate 1.6 FiO2 21.0 Venous Blood Potassium 3.8 Assessment & Plan - Assessment and Plan (Free Text) Assessment: 58F presents with abdominal pain likely 2/2 small bowel obstruction Plan: NPO IVFluids Pain control AntiEmetics NGT placement, patient refused - has a deviated septum CBC/CMP/Coags CT scan with PO contrast, patient unable to tolerate anything PO Further recs discuss with Dr. Mateusz Mcgrath, PGY3 <Perez Child - Last Filed: 12/08/18 07:58> Meds - Medications Medications: Current Medications Hydromorphone HCl (Dilaudid) 0.5 mg IVP Q4H PRN PRN Reason: Pain, severe (8-10) Last Admin: 12/08/18 04:05 Dose: 0.5 mg Sodium Chloride (Sodium Chloride 0.9%) 1,000 mls @ 150 mls/hr IV .Q6H40M MARTHA Last Admin: 12/07/18 22:48 Dose: 150 mls/hr Ondansetron HCl (Zofran Inj) 4 mg IVP Q6 PRN PRN Reason: Nausea/Vomiting Results - Vital Signs Recent Vital Signs: Last Vital Signs Temp 98.7 F 12/08/18 03:43 Pulse 99 H 12/08/18 03:43 Resp 20 12/08/18 03:43 BP 133/71 12/08/18 03:43 Pulse Ox 96 12/08/18 03:43 - Labs Result Diagrams: 12/07/18 22:45 12/08/18 00:25 Labs: Laboratory Results - last 24 hr 12/07/18 12/07/18 12/07/18 22:45 22:45 22:45 WBC 10.4 D RBC 5.62 Hgb 14.0 D Hct 44.7 MCV 79.5 L MCH 24.9 L MCHC 31.3 RDW 15.3 H Plt Count 290 MPV 10.6 Neut % (Auto) 75.2 H Lymph % (Auto) 18.4 L Jenkins % (Auto) 6.3 H Eos % (Auto) 0.0 L Baso % (Auto) 0.1 Lymph # (Auto) 1.9 Jenkins # (Auto) 0.7 H Eos # (Auto) 0.0 Baso # (Auto) 0.01 Absolute Neuts (auto) 7.81 H PT 12.7 H INR 1.14 APTT 36.2 pO2 52 VBG pH 7.39 VBG pCO2 50.0 VBG HCO3 30.3 H VBG Total CO2 31.8 H VBG O2 Sat (Calc) 88.3 H VBG Base Excess 4.2 H VBG Potassium 3.8 Sodium 140.0 Chloride 102.0 Glucose 120 H Lactate 1.6 FiO2 21.0 Potassium Carbon Dioxide Anion Gap BUN Creatinine Est GFR ( Amer) Est GFR (Non-Af Amer) Random Glucose Calcium Total Bilirubin AST ALT Alkaline Phosphatase Total Protein Albumin Globulin Albumin/Globulin Ratio Lipase Venous Blood Potassium 3.8 Blood Type Antibody Screen BBK History Checked 12/08/18 12/08/18 00:25 00:25 WBC RBC Hgb Hct MCV MCH MCHC RDW Plt Count MPV Neut % (Auto) Lymph % (Auto) Jenkins % (Auto) Eos % (Auto) Baso % (Auto) Lymph # (Auto) Jenkins # (Auto) Eos # (Auto) Baso # (Auto) Absolute Neuts (auto) PT INR APTT pO2 VBG pH VBG pCO2 VBG HCO3 VBG Total CO2 VBG O2 Sat (Calc) VBG Base Excess VBG Potassium Sodium 142 Chloride 100 Glucose Lactate FiO2 Potassium 3.8 Carbon Dioxide 30 Anion Gap 16 BUN 24 H Creatinine 0.7 Est GFR ( Amer) > 60 Est GFR (Non-Af Amer) > 60 Random Glucose 117 H Calcium 9.6 Total Bilirubin 0.7 AST 24 ALT 22 Alkaline Phosphatase 90 Total Protein 8.5 H Albumin 4.6 Globulin 3.9 Albumin/Globulin Ratio 1.2 Lipase 78 Venous Blood Potassium Blood Type A POSITIVE Antibody Screen Negative BBK History Checked Patient has bt Assessment & Plan - Assessment and Plan (Free Text) Plan: Sx PSBO Bobby: Conservative Rx-no surgery now This consult done under my direct supervision Lizeth Child MD FACS
[2018-12-08 01:01] LABS: ALB/GLOB RATIO 1.2 (1.1-1.8); ALBUMIN 4.6 g/dL (3.0-4.8); ALT/SGPT 22 U/L (7-56); AST/SGOT 24 U/L (14-36); BLOOD UREA NITROGEN 24 mg/dL (7-21); CALCIUM 9.6 mg/dL (8.4-10.5); GFR NON-AFRICAN AMERICAN > 60; LIPASE 78 U/L (23-300)
[2018-12-08] MEDS ORDERED: Iohexol 350 MG/100 ML VIAL ONE (01:29)
[2018-12-08 03:34] VITALS: BMI 25.2
[2018-12-08] MEDS ORDERED: Pneumococcal 23-Valent Vaccine IM ONE (03:34)
[2018-12-08] MEDS: HYDROmorphone 0.5 mg/0.5 ml ISec IVP PRN ×5 (04:05→22:17)
[2018-12-08] MEDS ORDERED: Piperacillin/Tazobact 3.375 gm 100 ML IVPB SCH (06:00)
--- NOTE | 2018-12-08 08:09 | CP.PCM.PN ---
Subjective - Date & Time of Evaluation Date of Evaluation: 12/08/18 Time of Evaluation: 06:45 - Subjective Subjective: General Surgery Dr. Child Pt seen and examined @bedside. No acute events overnight. Pt reports improved abd distention and pain. (+)ostomy output. Objective - Vital Signs/Intake and Output Vital Signs (last 24 hours): Temp Pulse Resp BP Pulse Ox 98.7 F 99 H 20 133/71 96 12/08/18 03:43 12/08/18 03:43 12/08/18 03:43 12/08/18 03:43 12/08/18 03:43 - Medications Medications: Current Medications Hydromorphone HCl (Dilaudid) 0.5 mg IVP Q4H PRN PRN Reason: Pain, severe (8-10) Last Admin: 12/08/18 04:05 Dose: 0.5 mg Sodium Chloride (Sodium Chloride 0.9%) 1,000 mls @ 150 mls/hr IV .Q6H40M MARTHA Last Admin: 12/07/18 22:48 Dose: 150 mls/hr Ondansetron HCl (Zofran Inj) 4 mg IVP Q6 PRN PRN Reason: Nausea/Vomiting - Labs Labs: 12/07/18 22:45 12/08/18 00:25 PT 12.7 SECONDS (9.4-12.5) H 12/07/18 22:45 INR 1.14 12/07/18 22:45 APTT 36.2 Seconds (26.9-38.3) 12/07/18 22:45 - Constitutional Appears: Non-toxic, No Acute Distress - Head Exam Head Exam: NORMAL INSPECTION - Eye Exam Eye Exam: Normal appearance - ENT Exam ENT Exam: Mucous Membranes Moist - Respiratory Exam Respiratory Exam: NORMAL BREATHING PATTERN. absent: Accessory Muscle Use, Respiratory Distress - Cardiovascular Exam Cardiovascular Exam: absent: Bradycardia, Tachycardia - GI/Abdominal Exam GI & Abdominal Exam: Distended (mild), Soft, Tenderness (minial). absent: Firm, Guarding, Rigid, Rebound Additional comments: stoma pink, patent stool present in ostomy appliance - Extremities Exam Extremities Exam: Normal Inspection - Neurological Exam Neurological Exam: Alert, Awake, Oriented x3 - Psychiatric Exam Psychiatric exam: Normal Affect, Normal Mood - Skin Skin Exam: Dry, Intact, Normal Color, Warm Assessment and Plan - Assessment and Plan (Free Text) Assessment: 58 y/o F w/ improving SBO Plan: - monitor ostomy output - non-narcotic pain management - IVF - anti-emetics - possible CLD today - encourage OOB to chair/Amb - GI/DVT PPx Further recs per Dr. Mateusz Dodge PGY3
[2018-12-08 09:01] LABS: HEMOGLOBIN 12.1 g/dL (12.0-16.0); MEAN CELL VOLUME 79.2 fl (80.0-105.0); MEAN CORPUSCULAR HEMOGLOBIN 24.6 pg (25.0-35.0); MEAN CORPUSCULAR HGB CONC 31.1 g/dl (31.0-37.0); RBC 4.91 10^6/uL (3.5-6.1); RED CELL DISTRIBUTION WIDTH 15.2 % (11.5-14.5); WHITE BLOOD COUNT 8.2 10^3/uL (4.5-11.0)
[2018-12-08 09:04] LABS: BLOOD UREA NITROGEN 23 mg/dL (7-21); GFR NON-AFRICAN AMERICAN > 60
[2018-12-08] MEDS: Sodium Chloride 0.9% 1,000 ML IV SCH ×4 (09:20→22:21)
--- NOTE | 2018-12-08 09:23 | RAD ---
Date of service: 12/07/2018 HISTORY: free air COMPARISON: 10/20/2018 TECHNIQUE: 1 view obtained. FINDINGS: LUNGS: No active pulmonary disease. PLEURA: No significant pleural effusion identified, no pneumothorax apparent. CARDIOVASCULAR: No aortic atherosclerotic calcification present. Normal cardiac size. No pulmonary vascular congestion. OSSEOUS STRUCTURES: No significant abnormalities. VISUALIZED UPPER ABDOMEN: Normal. OTHER FINDINGS: None. IMPRESSION: No active disease.
--- NOTE | 2018-12-08 11:41 | CARD ---
APPROVED REPORT Date of service: 12/07/2018 EKG Measurement Heart [id number] <Conclusion> Sinus tachycardia Possible Left atrial enlargement Nonspecific ST and T wave abnormality Abnormal ECG
--- NOTE | 2018-12-08 15:17 | CT ---
Date of service: 12/08/2018 PROCEDURE: CT Abdomen and Pelvis with contrast HISTORY: bowel obstruction COMPARISON: CT 10/24/2018 TECHNIQUE: Contrast dose: 100 cc of Omni 350 Radiation dose: Total exam DLP = 532.31 mGy-cm. This CT exam was performed using one or more of the following dose reduction techniques: Automated exposure control, adjustment of the mA and/or kV according to patient size, and/or use of iterative reconstruction technique. FINDINGS: LOWER THORAX: Unremarkable. LIVER: Unremarkable. No gross lesion or ductal dilatation. GALLBLADDER AND BILE DUCTS: Unremarkable. PANCREAS: Unremarkable. No gross lesion or ductal dilatation. SPLEEN: Unremarkable. ADRENALS: Unremarkable. No mass. KIDNEYS AND URETERS: Unremarkable. No hydronephrosis. No solid mass. VASCULATURE: Unremarkable. No aortic aneurysm. No aortic atherosclerotic calcification or mural plaque present. BOWEL: There is a moderate to severe partial small bowel obstruction. Multiple dilated fluid-filled loops of bowel are seen. There is no evidence of pneumatosis or free air. There is an ileostomy to the right of midline in the mid abdomen. The exact point of obstruction cannot be determined. APPENDIX: Normal appendix. PERITONEUM: Unremarkable. No free fluid. No free air. LYMPH NODES: Unremarkable. No enlarged lymph nodes. BLADDER: Unremarkable. REPRODUCTIVE: Unremarkable. BONES: No acute fracture. OTHER FINDINGS: The report concurs with the preliminary [facility] report IMPRESSION: There is a moderate to severe partial small bowel obstruction. Multiple dilated fluid-filled loops of bowel are seen. There is no evidence of pneumatosis or free air. There is an ileostomy to the right of midline in the mid abdomen. The exact point of obstruction cannot be determined.
--- NOTE | 2018-12-08 15:34 | CP.PCM.HP ---
History of Present Illness - History of Present Illness History of Present Illness: Internal Medicine History and Physical: December 08, 2018 58 yo AA female with lack of colostomy output, abdominal distension and pain, and vomiting episodes for the past few days. The paitent was recently in [facility] for SBO that resolved with non-invasive procedures. CT done showing small bowel obstruction with multiple dilated fluid-filled loops of bowel. 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 Dr. Perez Child performed the colostomy many years ago which resolved her blood pressure and diabetes issues at that time. She has not required treatment for diabetes or hypertension since the colostomy. PMHx: Spinal injuries, reflex sympathetic dystrophy, prior diabetes mellitus that corrected after colostomy PSHx: Colostomy, prior hernia repair, uterine surgery, partial hysterectomy, previous spinal cord stimulator. Allergies: PCN, Sulfa Social Hx: No tobacco, EtOH, or illicit drug use. Active Medications Hydromorphone HCl (Dilaudid) 0.5 mg IVP Q4H PRN PRN Reason: Pain, severe (8-10) Last Admin: 12/08/18 14:15 Dose: 0.5 mg Sodium Chloride (Sodium Chloride 0.9%) 1,000 mls @ 150 mls/hr IV .Q6H40M MARTHA Last Admin: 12/08/18 09:20 Dose: 150 mls/hr Ondansetron HCl (Zofran Inj) 4 mg IVP Q6 PRN PRN Reason: Nausea/Vomiting Family Hx: none given ROS: No fevers, chills, melena, hematuria, hamtemesis, hematochezia, and diarrhea. Patient with nausea and vomiting. Patient with abdominal discomfort. No chest pain. No depression or anxiety. No vision loss, hearing loss, or loss of consciousness. Present on Admission - Present on Admission Any Indicators Present on Admission: No Past Patient History - Infectious Disease Hx of Infectious Diseases: None - Past Medical History & Family History Past Medical History?: Yes - Past Social History Smoking Status: Never Smoked - CARDIAC Hx Pacemaker: No - PULMONARY Hx Pneumonia: Yes - NEUROLOGICAL Hx Neurological Disorder: Yes Other/Comment: Reflex dystrophy syndrome - HEENT Hx HEENT Problems: Yes - HEMATOLOGICAL/ONCOLOGICAL Hx Blood Transfusions: Yes Hx Blood Transfusion Reaction: No - MUSCULOSKELETAL/RHEUMATOLOGICAL Hx Back Pain: Yes (pain both hips radiating to lower extremeties) Hx Falls: No - GASTROINTESTINAL Other/Comment: colostomy 2011 - GENITOURINARY/GYNECOLOGICAL Hx Genitourinary Disorders: No - PSYCHIATRIC Hx Substance Use: Yes (narcotic dependency) - SURGICAL HISTORY Hx Cholecystectomy: Yes Hx Hysterectomy: Yes (partial) Other/Comment: + colostomy - ANESTHESIA Hx Anesthesia: Yes Hx Anesthesia Reactions: No Hx Malignant Hyperthermia: No Meds Allergies/Adverse Reactions: Allergies Allergy/AdvReac Type Severity Reaction Status Date / Time Penicillins Allergy Severe SHORTNESS Verified 12/07/18 21:34 OF BREATH Sulfa (Sulfonamide Allergy Severe SHORTNESS Verified 12/07/18 21:34 Antibiotics) OF BREATH banana Allergy Mild NAUSEA Verified 12/07/18 21:34 lactose Allergy Mild ITCHING Verified 12/07/18 21:34 Physical Exam - Constitutional Appears: Non-toxic, In Acute Distress, Chronically Ill - Head Exam Head Exam: ATRAUMATIC, NORMOCEPHALIC - Eye Exam Eye Exam: EOMI, PERRL Pupil Exam: NORMAL ACCOMODATION, PERRL - ENT Exam ENT Exam: Mucous Membranes Moist, Normal External Ear Exam, TM's Normal Bilate rally - Neck Exam Neck exam: Positive for: Full Rom, Normal Inspection - Respiratory Exam Respiratory Exam: Clear to Auscultation Bilateral, NORMAL BREATHING PATTERN. absent: Rales, Rhonchi, Wheezes - Cardiovascular Exam Cardiovascular Exam: REGULAR RHYTHM, RRR, +S1, +S2 - GI/Abdominal Exam GI & Abdominal Exam: Distended, Soft. absent: Rigid, Tenderness Additional comments: ostomy pink. Colostomy intact. - Extremities Exam Extremities exam: Positive for: full ROM, normal inspection - Neurological Exam Neurological exam: Alert, CN II-XII Intact, Oriented x3 - Psychiatric Exam Psychiatric exam: Normal Affect, Normal Mood - Skin Skin Exam: Intact, Normal Color Results - Vital Signs Recent Vital Signs: Last Vital Signs Temp 98.7 F 12/08/18 03:43 Pulse 99 H 12/08/18 03:43 Resp 20 12/08/18 03:43 BP 133/71 12/08/18 03:43 Pulse Ox 96 12/08/18 03:43 - Labs Result Diagrams: 12/08/18 08:30 12/08/18 08:30 Labs: Laboratory Results - last 24 hr 12/07/18 12/07/18 12/07/18 22:45 22:45 22:45 WBC 10.4 D RBC 5.62 Hgb 14.0 D Hct 44.7 MCV 79.5 L MCH 24.9 L MCHC 31.3 RDW 15.3 H Plt Count 290 MPV 10.6 Neut % (Auto) 75.2 H Lymph % (Auto) 18.4 L [place] % (Auto) 6.3 H Eos % (Auto) 0.0 L Baso % (Auto) 0.1 Lymph # (Auto) 1.9 [place] # (Auto) 0.7 H Eos # (Auto) 0.0 Baso # (Auto) 0.01 Absolute Neuts (auto) 7.81 H PT 12.7 H INR 1.14 APTT 36.2 pO2 52 VBG pH 7.39 VBG pCO2 50.0 VBG HCO3 30.3 H VBG Total CO2 31.8 H VBG O2 Sat (Calc) 88.3 H VBG Base Excess 4.2 H VBG Potassium 3.8 Sodium 140.0 Chloride 102.0 Glucose 120 H Lactate 1.6 FiO2 21.0 Potassium Carbon Dioxide Anion Gap BUN Creatinine Est GFR ( Amer) Est GFR (Non-Af Amer) Random Glucose Calcium Phosphorus Magnesium Total Bilirubin AST ALT Alkaline Phosphatase Total Protein Albumin Globulin Albumin/Globulin Ratio Lipase Venous Blood Potassium 3.8 Blood Type Antibody Screen BBK History Checked 12/08/18 12/08/18 12/08/18 00:25 00:25 08:30 WBC 8.2 D RBC 4.91 Hgb 12.1 Hct 38.9 MCV 79.2 L MCH 24.6 L MCHC 31.1 RDW 15.2 H Plt Count 235 MPV 10.0 Neut % (Auto) Lymph % (Auto) [place] % (Auto) Eos % (Auto) Baso % (Auto) Lymph # (Auto) [place] # (Auto) Eos # (Auto) Baso # (Auto) Absolute Neuts (auto) PT INR APTT pO2 VBG pH VBG pCO2 VBG HCO3 VBG Total CO2 VBG O2 Sat (Calc) VBG Base Excess VBG Potassium Sodium 142 Chloride 100 Glucose Lactate FiO2 Potassium 3.8 Carbon Dioxide 30 Anion Gap 16 BUN 24 H Creatinine 0.7 Est GFR ( Amer) > 60 Est GFR (Non-Af Amer) > 60 Random Glucose 117 H Calcium 9.6 Phosphorus Magnesium Total Bilirubin 0.7 AST 24 ALT 22 Alkaline Phosphatase 90 Total Protein 8.5 H Albumin 4.6 Globulin 3.9 Albumin/Globulin Ratio 1.2 Lipase 78 Venous Blood Potassium Blood Type A POSITIVE Antibody Screen Negative BBK History Checked Patient has bt 12/08/18 08:30 WBC RBC Hgb Hct MCV MCH MCHC RDW Plt Count MPV Neut % (Auto) Lymph % (Auto) [place] % (Auto) Eos % (Auto) Baso % (Auto) Lymph # (Auto) [place] # (Auto) Eos # (Auto) Baso # (Auto) Absolute Neuts (auto) PT INR APTT pO2 VBG pH VBG pCO2 VBG HCO3 VBG Total CO2 VBG O2 Sat (Calc) VBG Base Excess VBG Potassium Sodium 142 Chloride 104 Glucose Lactate FiO2 Potassium 3.7 Carbon Dioxide 28 Anion Gap 14 BUN 23 H Creatinine 0.7 Est GFR ( Amer) > 60 Est GFR (Non-Af Amer) > 60 Random Glucose 103 Calcium 9.0 Phosphorus 3.7 Magnesium 2.2 Total Bilirubin AST ALT Alkaline Phosphatase Total Protein Albumin Globulin Albumin/Globulin Ratio Lipase Venous Blood Potassium Blood Type Antibody Screen BBK History Checked Assessment & Plan - Assessment and Plan (Free Text) Assessment: 58 yo AA female with partial small bowel obstruction. The patient currently NPO. Conservative therapy for now. Seen by surgery. Giving IV fluids. May still need surgery depending on progress of the conservative therapy. Case discussed with Dr. Child. Avoid opiates. Surgery following. Thank you for allowing me to participate in the care of the patient, we will follow with you. Decision To Admit - Pt Status Changed To: Hospital Disposition Of: Inpatient Admission - Admit Certification Admit to Inpatient:: After my assessment, the patient will require hospitalization for at least two midnights. This is because of the severity of symptoms shown, intensity of services needed, and/or the medical risk in this patient being treated as an outpatient. - . Bed Request Type: Med/Surg Admitting Physician: Perez Augustin
[2018-12-09] MEDS: Sodium Chloride 0.9% 1,000 ML IV SCH (01:28)
[2018-12-09] MEDS: HYDROmorphone 0.5 mg/0.5 ml ISec IVP PRN ×3 (02:15→10:43)
[2018-12-09 08:22] LABS: HEMOGLOBIN 10.7 g/dL (12.0-16.0); MEAN CELL VOLUME 80.2 fl (80.0-105.0); MEAN PLATELET VOLUME 10.5 fl (7.0-11.0); RBC 4.45 10^6/uL (3.5-6.1); WHITE BLOOD COUNT 6.9 10^3/uL (4.5-11.0)
--- NOTE | 2018-12-09 08:37 | CP.PCM.PN ---
Subjective - Date & Time of Evaluation Date of Evaluation: 12/09/18 Time of Evaluation: 07:00 - Subjective Subjective: General Surgery Pt seen and examined. Pt reports dark brown emesis x 4 overnight. Reports abd distention and pain that is controlled by meds. Remains NPO, Offered placement of NGT but pt refused at this time. Small amount of stool in ostomy. Was eating ice chips last night. Objective - Vital Signs/Intake and Output Vital Signs (last 24 hours): Temp Pulse Resp BP Pulse Ox 98.6 F 85 18 150/75 97 12/08/18 22:00 12/08/18 22:00 12/08/18 22:00 12/08/18 22:00 12/08/18 22:00 Intake and Output: 12/09/18 12/09/18 06:59 18:59 Intake Total 540 Balance 540 - Medications Medications: Current Medications Hydromorphone HCl (Dilaudid) 0.5 mg IVP Q4H PRN PRN Reason: Pain, severe (8-10) Last Admin: 12/09/18 06:26 Dose: 0.5 mg Sodium Chloride (Sodium Chloride 0.9%) 1,000 mls @ 150 mls/hr IV .Q6H40M MARTHA Last Admin: 12/09/18 01:28 Dose: 150 mls/hr Ondansetron HCl (Zofran Inj) 4 mg IVP Q6 PRN PRN Reason: Nausea/Vomiting Last Admin: 12/09/18 01:25 Dose: 4 mg - Labs Labs: 12/09/18 08:00 12/08/18 08:30 PT 12.7 SECONDS (9.4-12.5) H 12/07/18 22:45 INR 1.14 12/07/18 22:45 APTT 36.2 Seconds (26.9-38.3) 12/07/18 22:45 - Constitutional Appears: Non-toxic, No Acute Distress - Head Exam Head Exam: ATRAUMATIC, NORMOCEPHALIC - Eye Exam Eye Exam: EOMI. absent: Scleral icterus - Respiratory Exam Respiratory Exam: NORMAL BREATHING PATTERN. absent: Respiratory Distress - GI/Abdominal Exam GI & Abdominal Exam: Distended, Soft, Tenderness. absent: Firm, Rigid Additional comments: Stool in ostomy appliance stoma pink, viable - Extremities Exam Extremities Exam: Normal Capillary Refill. absent: Calf Tenderness - Neurological Exam Neurological Exam: Alert, Awake, Oriented x3 - Skin Skin Exam: Dry, Warm Assessment and Plan - Assessment and Plan (Free Text) Assessment: 58F with SBO Plan: - monitor ostomy output - non-narcotic pain management - IVF - anti-emetics - Continue ice chips/mouth swabs - encourage OOB to chair/Amb - GI/DVT PPx D/W Dr. Mateusz Ricci PGY4
[2018-12-09 08:40] LABS: ALB/GLOB RATIO 1.2 (1.1-1.8); ALBUMIN 3.5 g/dL (3.0-4.8); ALT/SGPT 18 U/L (7-56); AST/SGOT 21 U/L (14-36); BLOOD UREA NITROGEN 23 mg/dL (7-21); CALCIUM 8.4 mg/dL (8.4-10.5); GFR NON-AFRICAN AMERICAN > 60
--- NOTE | 2018-12-09 09:00 | CP.PCM.PCO ---
Physician Communication Note - Physician Communication Note Physician Communication Note: Still blocked! Add PPI/ice chips only/?Reglan IV
--- NOTE | 2018-12-09 20:00 | CP.PCM.PN ---
Subjective - Date & Time of Evaluation Date of Evaluation: 12/09/18 Time of Evaluation: 19:49 - Subjective Subjective: Internal Medicine Progress Note: December 09, 2018 58 yo AA female with lack of colostomy output, abdominal distension and pain, and vomiting episodes for the past few days. The paitent was [place] [facility] [place] that resolved with non-invasive procedures. CT done showing small bowel obstruction with multiple dilated fluid-filled loops of bowel. 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 Dr. Perez Child performed the colostomy many years ago which resolved her blood pressure and diabetes issues at that time. She has not required treatment for diabetes or hypertension since the colostomy. The patient still with abdominal pain. NPO. Objective - Vital Signs/Intake and Output Vital Signs (last 24 hours): Temp Pulse Resp BP Pulse Ox 98.4 F 68 20 129/68 100 12/09/18 14:00 12/09/18 14:00 12/09/18 14:00 12/09/18 14:00 12/09/18 14:00 Intake and Output: 12/09/18 12/10/18 18:59 06:59 Intake Total 0 Balance 0 - Medications Medications: Current Medications Sodium Chloride (Sodium Chloride 0.9%) 1,000 mls @ 150 mls/hr IV .Q6H40M [facility] Last Admin: 12/09/18 01:28 Dose: 150 mls/hr Methadone HCl (Methadone) 30 mg PO DAILY [facility] Last Admin: 12/09/18 15:15 Dose: 30 mg Ondansetron HCl (Zofran Inj) 4 mg IVP Q6 PRN PRN Reason: Nausea/Vomiting Last Admin: 12/09/18 10:43 Dose: 4 mg Pantoprazole Sodium (Protonix Inj) 40 mg IVP DAILY [facility] Last Admin: 12/09/18 10:44 Dose: 40 mg - Labs Labs: 12/09/18 08:00 12/09/18 08:00 PT 12.7 SECONDS (9.4-12.5) H 12/07/18 22:45 INR 1.14 12/07/18 22:45 APTT 36.2 Seconds (26.9-38.3) 12/07/18 22:45 - Constitutional Appears: Non-toxic, No Acute Distress, Chronically Ill - Head Exam Head Exam: ATRAUMATIC, NORMOCEPHALIC - Eye Exam Eye Exam: EOMI, PERRL Pupil Exam: NORMAL ACCOMODATION, PERRL - ENT Exam ENT Exam: Mucous Membranes Moist, Normal External Ear Exam, TM's Normal Bilaterally - Neck Exam Neck Exam: Full ROM, Normal Inspection - Respiratory Exam Respiratory Exam: Clear to Ausculation Bilateral, NORMAL BREATHING PATTERN. absent: Rales, Rhonchi, Wheezes - Cardiovascular Exam Cardiovascular Exam: REGULAR RHYTHM, RRR, +S1, +S2 - GI/Abdominal Exam GI & Abdominal Exam: Distended, Soft. absent: Tenderness, Normal Bowel Sounds Additional comments: ostomy pink. Colostomy intact. - Extremities Exam Extremities Exam: Full ROM, Normal Inspection - Neurological Exam Neurological Exam: Alert, Awake, CN II-XII Intact, Oriented x3 - Psychiatric Exam Psychiatric exam: Normal Affect, Normal Mood - Skin Skin Exam: Intact, Normal Color Assessment and Plan - Assessment and Plan (Free Text) Assessment: 58 yo AA female with partial small bowel obstruction. The patient currently NPO. Conservative therapy for now. Seen by surgery. Giving IV fluids. May still need surgery depending on progress of the conservative therapy. Case discussed with Dr. Child. Avoid opiates. Surgery following. Second episode in the month. Referring to surgery for NPO and potential conservative versus surgical intervention. Thank you for allowing me to participate in the care of the patient, we will follow with you.
[2018-12-10] MEDS: Sodium Chloride 0.9% 1,000 ML IV SCH ×2 (01:05→12:15)
--- NOTE | 2018-12-10 08:24 | CP.PCM.PN ---
<Joann Dodge - Last Filed: 12/10/18 08:21> Subjective - Date & Time of Evaluation Date of Evaluation: 12/10/18 Time of Evaluation: 07:00 - Subjective Subjective: General Surgery Dr. Child Pt seen and examined @bedside. No acute events overnights. pt has no complaints this AM. pain slightly improved. reports increased bowel sounds though no flatus/BM. continues nausea though no vomiting since yesterday morning. Objective - Vital Signs/Intake and Output Vital Signs (last 24 hours): Temp Pulse Resp BP Pulse Ox 98.1 F 73 18 138/94 H 99 12/09/18 22:32 12/09/18 22:32 12/09/18 22:32 12/09/18 22:32 12/09/18 22:32 Intake and Output: 12/10/18 12/10/18 06:59 18:59 Intake Total 0 Balance 0 - Medications Medications: Current Medications Sodium Chloride (Sodium Chloride 0.9%) 1,000 mls @ 100 mls/hr IV .Q10H [facility] Last Admin: 12/10/18 01:05 Dose: 100 mls/hr Methadone HCl (Methadone) 30 mg PO DAILY [facility] Last Admin: 12/09/18 15:15 Dose: 30 mg Metoclopramide HCl (Reglan) 5 mg IVP ACHS [facility] Ondansetron HCl (Zofran Inj) 4 mg IVP Q6 PRN PRN Reason: Nausea/Vomiting Last Admin: 12/09/18 22:59 Dose: 4 mg Pantoprazole Sodium (Protonix Inj) 40 mg IVP DAILY [facility] Last Admin: 12/09/18 10:44 Dose: 40 mg - Labs Labs: 12/09/18 08:00 12/09/18 08:00 PT 12.7 SECONDS (9.4-12.5) H 12/07/18 22:45 INR 1.14 12/07/18 22:45 APTT 36.2 Seconds (26.9-38.3) 12/07/18 22:45 - Constitutional Appears: Non-toxic, No Acute Distress - Head Exam Head Exam: NORMAL INSPECTION - Eye Exam Eye Exam: Normal appearance - ENT Exam ENT Exam: Mucous Membranes Moist - Respiratory Exam Respiratory Exam: NORMAL BREATHING PATTERN. absent: Accessory Muscle Use, Respiratory Distress - Cardiovascular Exam Cardiovascular Exam: absent: Bradycardia, Tachycardia - GI/Abdominal Exam GI & Abdominal Exam: Distended (moderate), Soft. absent: Firm, Guarding, Rigid, Tenderness, Rebound Additional comments: ostomy - Extremities Exam Extremities Exam: Normal Inspection - Neurological Exam Neurological Exam: Alert, Awake, Oriented x3 - Psychiatric Exam Psychiatric exam: Normal Affect, Normal Mood - Skin Skin Exam: Dry, Intact, Normal Color, Warm Assessment and Plan - Assessment and Plan (Free Text) Assessment: 58 y/o F w/ recurrent SBO, refusing NGT placement Plan: - monitor ostomy output - cont Methadone - NPO w/ ice, IVF - cont Reglan/Zofran PRN Nausea - encourage OOB to chair/Amb - GI/DVT PPx Pt discussed w/ Dr. Mateusz Dodge PGY3 <Perez Child - Last Filed: 12/10/18 13:49> Objective - Vital Signs/Intake and Output Vital Signs (last 24 hours): Temp Pulse Resp BP Pulse Ox 98.1 F 73 18 138/94 H 99 12/09/18 22:32 12/09/18 22:32 12/09/18 22:32 12/09/18 22:32 12/09/18 22:32 Intake and Output: 12/10/18 12/10/18 06:59 18:59 Intake Total 0 Balance 0 - Medications Medications: Current Medications Sodium Chloride (Sodium Chloride 0.9%) 1,000 mls @ 100 mls/hr IV .Q10H [facility] Last Admin: 12/10/18 01:05 Dose: 100 mls/hr Methadone HCl (Methadone) 30 mg PO DAILY [facility] Last Admin: 12/10/18 09:43 Dose: 30 mg Metoclopramide HCl (Reglan) 5 mg IVP ACHS [facility] Last Admin: 12/10/18 09:44 Dose: 5 mg Ondansetron HCl (Zofran Inj) 4 mg IVP Q6 PRN PRN Reason: Nausea/Vomiting Last Admin: 12/10/18 09:44 Dose: 4 mg Pantoprazole Sodium (Protonix Inj) 40 mg IVP DAILY [facility] Last Admin: 12/10/18 09:43 Dose: 40 mg - Labs Labs: 12/10/18 11:10 12/10/18 11:10 PT 12.7 SECONDS (9.4-12.5) H 12/07/18 22:45 INR 1.14 12/07/18 22:45 APTT 36.2 Seconds (26.9-38.3) 12/07/18 22:45 Assessment and Plan - Assessment and Plan (Free Text) Plan: + BM Relistor/Reglan Discusses Interval surgery if and when needed Lizeth Child MD FACS
[2018-12-10 11:30] LABS: HEMOGLOBIN 11.4 g/dL (12.0-16.0); MEAN CORPUSCULAR HEMOGLOBIN 24.2 pg (25.0-35.0); MEAN CORPUSCULAR HGB CONC 30.6 g/dl (31.0-37.0); RBC 4.71 10^6/uL (3.5-6.1); RED CELL DISTRIBUTION WIDTH 14.6 % (11.5-14.5); WHITE BLOOD COUNT 6.3 10^3/uL (4.5-11.0)
[2018-12-10 12:01] LABS: BLOOD UREA NITROGEN 15 mg/dL (7-21); CALCIUM 8.6 mg/dL (8.4-10.5); GFR NON-AFRICAN AMERICAN > 60
--- NOTE | 2018-12-10 18:51 | CP.PCM.PN ---
Subjective - Date & Time of Evaluation Date of Evaluation: 12/10/18 Time of Evaluation: 16:45 - Subjective Subjective: Internal Medicine Progress Note: December 10, 2018 58 yo AA female with lack of colostomy output, abdominal distension and pain, and vomiting episodes for the past few days. The paitent was recently in [facility] [place] for SBO that resolved with non-invasive procedures. CT done showing small bowel obstruction with multiple dilated fluid-filled loops of bowel. 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 Dr. Perez Child performed the colostomy many years ago which resolved her blood pressure and diabetes issues at that time. She has not required treatment for diabetes or hypertension since the colostomy. The patient still with abdominal pain. NPO. Surgery deciding on whether surgery is required for the patient. Objective - Vital Signs/Intake and Output Vital Signs (last 24 hours): Temp Pulse Resp BP Pulse Ox 98.2 F 67 18 149/63 97 12/10/18 14:00 12/10/18 14:00 12/10/18 14:00 12/10/18 14:00 12/10/18 14:00 Intake and Output: 12/10/18 12/10/18 06:59 18:59 Intake Total 0 Balance 0 - Medications Medications: Current Medications Sodium Chloride (Sodium Chloride 0.9%) 1,000 mls @ 100 mls/hr IV .Q10H [facility] Last Admin: 12/10/18 12:15 Dose: 100 mls/hr Methadone HCl (Methadone) 30 mg PO DAILY [facility] Last Admin: 12/10/18 09:43 Dose: 30 mg Metoclopramide HCl (Reglan) 5 mg IVP ACHS [facility] Last Admin: 12/10/18 17:16 Dose: 5 mg Ondansetron HCl (Zofran Inj) 4 mg IVP Q6 PRN PRN Reason: Nausea/Vomiting Last Admin: 12/10/18 09:44 Dose: 4 mg Pantoprazole Sodium (Protonix Inj) 40 mg IVP DAILY [facility] Last Admin: 12/10/18 09:43 Dose: 40 mg - Labs Labs: 12/10/18 11:10 12/10/18 11:10 PT 12.7 SECONDS (9.4-12.5) H 12/07/18 22:45 INR 1.14 12/07/18 22:45 APTT 36.2 Seconds (26.9-38.3) 12/07/18 22:45 - Constitutional Appears: Non-toxic, No Acute Distress, Chronically Ill - Head Exam Head Exam: ATRAUMATIC, NORMOCEPHALIC - Eye Exam Eye Exam: EOMI, PERRL Pupil Exam: NORMAL ACCOMODATION, PERRL - ENT Exam ENT Exam: Mucous Membranes Moist, Normal External Ear Exam, TM's Normal B ilaterally - Neck Exam Neck Exam: Full ROM, Normal Inspection - Respiratory Exam Respiratory Exam: Clear to Ausculation Bilateral, NORMAL BREATHING PATTERN. absent: Rales, Rhonchi, Wheezes - Cardiovascular Exam Cardiovascular Exam: REGULAR RHYTHM, RRR, +S1, +S2 - GI/Abdominal Exam GI & Abdominal Exam: Distended, Soft, Normal Bowel Sounds. absent: Tenderness Additional comments: ostomy pink. Colostomy intact. - Extremities Exam Extremities Exam: Full ROM, Normal Inspection - Neurological Exam Neurological Exam: Alert, Awake, CN II-XII Intact, Oriented x3 - Psychiatric Exam Psychiatric exam: Normal Affect, Normal Mood - Skin Skin Exam: Intact, Normal Color Assessment and Plan - Assessment and Plan (Free Text) Assessment: 58 yo AA female with partial small bowel obstruction. The patient currently NPO. Conservative therapy for now. Seen by surgery. Giving IV fluids. May still need surgery depending on progress of the conservative therapy. Case discussed with Dr. Child. Avoid opiates. Surgery following. Second episode in the month. Referring to surgery for NPO and potential conservative versus surgical intervention. Patient somewhat comfortable at this time. Low ostomy output. Thank you for allowing me to participate in the care of the patient, we will follow with you.
[2018-12-11] MEDS ORDERED: Dextrose 50% SYRINGE Inj (50 ml) ONE (06:03)
[2018-12-11] MEDS: Dextrose 5%/0.9% NS 1,000 ML IV SCH ×2 (06:15→17:17)
[2018-12-11 07:04] LABS: MEAN CELL VOLUME 78.3 fl (80.0-105.0); MEAN CORPUSCULAR HEMOGLOBIN 24.6 pg (25.0-35.0); MEAN CORPUSCULAR HGB CONC 31.3 g/dl (31.0-37.0); MEAN PLATELET VOLUME 10.6 fl (7.0-11.0); RBC 4.48 10^6/uL (3.5-6.1); WHITE BLOOD COUNT 6.2 10^3/uL (4.5-11.0)
[2018-12-11 07:26] LABS: BLOOD UREA NITROGEN 7 mg/dL (7-21); CALCIUM 7.9 mg/dL (8.4-10.5); GFR NON-AFRICAN AMERICAN > 60
[2018-12-11] MEDS ORDERED: Magnesium Sulfate 2 gm/50 ml 2 GM/50 ML BAG IVPB ONE (08:24)
--- NOTE | 2018-12-11 08:29 | CP.PCM.PN ---
<Kirby Nelson - Last Filed: 12/11/18 08:27> Subjective - Date & Time of Evaluation Date of Evaluation: 12/11/18 Time of Evaluation: 08:27 - Subjective Subjective: General Surgery: Dr Child PT S&E on floor. Having significant ostomy output. Reports feeling much better, but still with nausea and distension. No further vomiting. Electrolyte replacement ordered. Objective - Vital Signs/Intake and Output Vital Signs (last 24 hours): Temp Pulse Resp BP Pulse Ox 98.1 F 91 H 18 156/69 H 96 12/10/18 22:04 12/10/18 22:04 12/10/18 22:04 12/10/18 22:04 12/10/18 22:04 Intake and Output: 12/11/18 12/11/18 06:59 18:59 Intake Total 0 Balance 0 - Medications Medications: Current Medications Dextrose/Sodium Chloride (Dextrose 5%/0.9% Ns 1000 Ml) 1,000 mls @ 100 mls/hr IV .Q10H [facility] Last Admin: 12/11/18 06:15 Dose: 100 mls/hr Magnesium Sulfate (Magnesium Sulfate 2 Gm/50 Ml Water) 2 gm in 50 mls @ 50 mls/hr IVPB ONCE ONE Stop: 12/11/18 09:23 Potassium Chloride (Potassium Chloride 10 Meq/100 Ml) 10 meq in 100 mls @ 100 mls/hr IVPB Q2H [facility] Stop: 12/11/18 19:29 Methadone HCl (Methadone) 30 mg PO DAILY [facility] Last Admin: 12/10/18 09:43 Dose: 30 mg Metoclopramide HCl (Reglan) 5 mg IVP ACHS [facility] Last Admin: 12/10/18 21:35 Dose: 5 mg Ondansetron HCl (Zofran Inj) 4 mg IVP Q6 PRN PRN Reason: Nausea/Vomiting Last Admin: 12/10/18 09:44 Dose: 4 mg Pantoprazole Sodium (Protonix Inj) 40 mg IVP DAILY [facility] Last Admin: 12/10/18 09:43 Dose: 40 mg - Labs Labs: 12/11/18 06:40 12/11/18 06:40 PT 12.7 SECONDS (9.4-12.5) H 12/07/18 22:45 INR 1.14 12/07/18 22:45 APTT 36.2 Seconds (26.9-38.3) 12/07/18 22:45 - Constitutional Appears: No Acute Distress, Chronically Ill - Respiratory Exam Respiratory Exam: absent: Respiratory Distress - Cardiovascular Exam Cardiovascular Exam: absent: Tachycardia - GI/Abdominal Exam GI & Abdominal Exam: Distended, Soft, Tenderness (improved) - Rectal Exam Rectal Exam: Fecal Impaction - Neurological Exam Neurological Exam: Alert, Awake, Oriented x3 - Psychiatric Exam Psychiatric exam: Normal Affect, Normal Mood Assessment and Plan - Assessment and Plan (Free Text) Assessment: 58F w/ abdominal pain secondary to intermittent obstruction/ileus Plan: cont NPO cont IVF replacement electrolyte replacement ordered for Mg and K peripherally cont Relistor will cont to follow d/w Dr Mateusz Nelson, PGY4 <Perez Child - Last Filed: 12/11/18 11:26> Objective - Vital Signs/Intake and Output Vital Signs (last 24 hours): Temp Pulse Resp BP Pulse Ox 98.1 F 91 H 18 156/69 H 96 12/10/18 22:04 12/10/18 22:04 12/10/18 22:04 12/10/18 22:04 12/10/18 22:04 Intake and Output: 12/11/18 12/11/18 06:59 18:59 Intake Total 0 Balance 0 - Medications Medications: Current Medications Dextrose/Sodium Chloride (Dextrose 5%/0.9% Ns 1000 Ml) 1,000 mls @ 100 mls/hr IV .Q10H [facility] Last Admin: 12/11/18 06:15 Dose: 100 mls/hr Potassium Chloride (Potassium Chloride 10 Meq/100 Ml) 10 meq in 100 mls @ 100 mls/hr IVPB Q2H [facility] Stop: 12/11/18 19:29 Last Admin: 12/11/18 11:00 Dose: 100 mls/hr Methadone HCl (Methadone) 30 mg PO DAILY [facility] Last Admin: 12/11/18 09:35 Dose: 30 mg Metoclopramide HCl (Reglan) 5 mg IVP ACHS [facility] Last Admin: 12/11/18 09:36 Dose: 5 mg Ondansetron HCl (Zofran Inj) 4 mg IVP Q6 PRN PRN Reason: Nausea/Vomiting Last Admin: 12/10/18 09:44 Dose: 4 mg Pantoprazole Sodium (Protonix Inj) 40 mg IVP DAILY [facility] Last Admin: 12/11/18 09:36 Dose: 40 mg - Labs Labs: 12/11/18 06:40 12/11/18 06:40 PT 12.7 SECONDS (9.4-12.5) H 12/07/18 22:45 INR 1.14 12/07/18 22:45 APTT 36.2 Seconds (26.9-38.3) 12/07/18 22:45 Assessment and Plan - Assessment and Plan (Free Text) Plan: Adding clear liquids cautiously Lizeth Child MD FACS
--- NOTE | 2018-12-11 18:41 | CP.PCM.PN ---
Subjective - Date & Time of Evaluation Date of Evaluation: 12/11/18 Time of Evaluation: 18:00 - Subjective Subjective: Internal Medicine Progress Note: December 11, 2018 58 yo AA female with lack of colostomy output, abdominal distension and pain, and vomiting episodes for the past few days. The paitent was recently in [facility] [place] for SBO that resolved with non-invasive procedures. CT done showing small bowel obstruction with multiple dilated fluid-filled loops of bowel. 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 Dr. Perez Child performed the colostomy many years ago which resolved her blood pressure and diabetes issues at that time. She has not required treatment for diabetes or hypertension since the colostomy. The patient still with abdominal pain. NPO. Surgery deciding on whether surgery is required for the patient however, as per surgery the patient has been resistant to having surgery performed. Objective - Vital Signs/Intake and Output Vital Signs (last 24 hours): Temp Pulse Resp BP Pulse Ox 97.9 F 78 18 144/75 100 12/11/18 06:00 12/11/18 06:00 12/11/18 06:00 12/11/18 06:00 12/11/18 06:00 Intake and Output: 12/11/18 12/11/18 06:59 18:59 Intake Total 0 Balance 0 - Medications Medications: Current Medications Dextrose/Sodium Chloride (Dextrose 5%/0.9% Ns 1000 Ml) 1,000 mls @ 100 mls/hr IV .Q10H [facility] Last Admin: 12/11/18 17:17 Dose: 100 mls/hr Potassium Chloride (Potassium Chloride 10 Meq/100 Ml) 10 meq in 100 mls @ 100 mls/hr IVPB Q2H [facility] Stop: 12/11/18 19:29 Last Admin: 12/11/18 17:18 Dose: 100 mls/hr Methadone HCl (Methadone) 30 mg PO DAILY [facility] Last Admin: 12/11/18 09:35 Dose: 30 mg Metoclopramide HCl (Reglan) 5 mg IVP ACHS [facility] Last Admin: 12/11/18 17:18 Dose: 5 mg Ondansetron HCl (Zofran Inj) 4 mg IVP Q6 PRN PRN Reason: Nausea/Vomiting Last Admin: 12/10/18 09:44 Dose: 4 mg Pantoprazole Sodium (Protonix Inj) 40 mg IVP DAILY [facility] Last Admin: 12/11/18 09:36 Dose: 40 mg - Labs Labs: 12/11/18 06:40 12/11/18 06:40 PT 12.7 SECONDS (9.4-12.5) H 12/07/18 22:45 INR 1.14 12/07/18 22:45 APTT 36.2 Seconds (26.9-38.3) 12/07/18 22:45 - Constitutional Appears: Non-toxic, No Acute Distress, Chronically Ill - Head Exam Head Exam: ATRAUMATIC, NORMOCEPHALIC - Eye Exam Eye Exam: EOMI, PERRL Pupil Exam: NORMAL ACCOMODATION, PERRL - ENT Exam ENT Exam: Mucous Membranes Moist, Normal External Ear Exam, TM's Normal Bilaterally - Neck Exam Neck Exam: Full ROM, Normal Inspection - Respiratory Exam Respiratory Exam: Clear to Ausculation Bilateral, NORMAL BREATHING PATTERN. absent: Rales, Rhonchi, Wheezes - Cardiovascular Exam Cardiovascular Exam: REGULAR RHYTHM, RRR, +S1, +S2 - GI/Abdominal Exam GI & Abdominal Exam: Soft, Normal Bowel Sounds. absent: Tenderness, Diminished Bowel Sounds Additional comments: ostomy pink. Colostomy intact. Some output through ostomy. - Extremities Exam Extremities Exam: Full ROM, Normal Inspection - Neurological Exam Neurological Exam: Alert, Awake, CN II-XII Intact, Oriented x3 - Psychiatric Exam Psychiatric exam: Normal Affect, Normal Mood - Skin Skin Exam: Intact, Normal Color Assessment and Plan - Assessment and Plan (Free Text) Assessment: 58 yo AA female with partial small bowel obstruction. The patient currently NPO. Conservative therapy for now. Seen by surgery. Giving IV fluids. May still need surgery depending on progress of the conservative therapy. Case discussed with Dr. Child. Avoid opiates. Surgery following. Second episode in the month. Referring to surgery for NPO and potential conservative versus surgical intervention. Patient somewhat comfortable at this time. Low ostomy output. Supportive care. Patient has apparently told surgery that she did not want a surgical procedure done at this time. Thank you for allowing me to participate in the care of the patient, we will follow with you.
[2018-12-12 07:26] LABS: HEMOGLOBIN 11.3 g/dL (12.0-16.0); MEAN CELL VOLUME 76.2 fl (80.0-105.0); MEAN CORPUSCULAR HEMOGLOBIN 24.2 pg (25.0-35.0); MEAN CORPUSCULAR HGB CONC 31.8 g/dl (31.0-37.0); MEAN PLATELET VOLUME 10.5 fl (7.0-11.0); RBC 4.66 10^6/uL (3.5-6.1); RED CELL DISTRIBUTION WIDTH 13.6 % (11.5-14.5); WHITE BLOOD COUNT 6.8 10^3/uL (4.5-11.0)
[2018-12-12 08:07] LABS: BLOOD UREA NITROGEN < 2 mg/dL (7-21); CALCIUM 8.4 mg/dL (8.4-10.5); GFR NON-AFRICAN AMERICAN > 60
[2018-12-12] MEDS ORDERED: Magnesium Sulfate 2 gm/50 ml 2 GM/50 ML BAG IVPB ONE (08:21)
--- NOTE | 2018-12-12 08:23 | CP.PCM.PCO ---
Physician Communication Note - Physician Communication Note Physician Communication Note: tolerating CLD - K/Mg replaced - cont to monitor
[2018-12-12] MEDS: Potassium Chloride 20 MEQ in Dextrose 5%/0.9% NS 1,000 ML IV SCH ×2 (10:52→17:57)
[2018-12-12] MEDS: Bisacodyl 5mg EC Tab PO SCH (10:52)
[2018-12-12] MEDS: Potassium Chloride 10 mEq ER Tab PO SCH (10:52)
--- NOTE | 2018-12-12 11:22 | CP.PCM.PCO ---
Physician Communication Note - Physician Communication Note Physician Communication Note: full liquid diet
--- NOTE | 2018-12-12 15:12 | CP.PCM.PN ---
Subjective - Date & Time of Evaluation Date of Evaluation: 12/12/18 Time of Evaluation: 14:30 - Subjective Subjective: Internal Medicine Progress Note: December 12, 2018 58 yo AA female with lack of colostomy output, abdominal distension and pain, and vomiting episodes for the past few days. The paitent was recently in [facility] [place] for SBO that resolved with non-invasive procedures. CT done showing small bowel obstruction with multiple dilated fluid-filled loops of bowel. 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 Dr. Perez Child performed the colostomy many years ago which resolved her blood pressure and diabetes issues at that time. She has not required treatment for diabetes or hypertension since the colostomy. The patient still with abdominal pain. NPO. Surgery deciding on whether surgery is required for the patient however, as per surgery the patient has been resistant to having surgery performed. Started on a full liquid diet now. Green liquid output in ostomy. Objective - Vital Signs/Intake and Output Vital Signs (last 24 hours): Temp Pulse Resp BP Pulse Ox 98.5 F 70 17 113/72 94 L 12/12/18 06:00 12/12/18 06:00 12/12/18 06:00 12/12/18 06:00 12/12/18 06:00 Intake and Output: 12/12/18 12/12/18 06:59 18:59 Intake Total 1860 Balance 1860 - Medications Medications: Current Medications Bisacodyl (Dulcolax) 5 mg PO DAILY [facility] Last Admin: 12/12/18 10:52 Dose: 5 mg Potassium Chloride 20 meq/ (Dextrose/Sodium Chloride) 1,010 mls @ 100 mls/hr IV .Q10H6M [facility] Last Admin: 12/12/18 10:52 Dose: 100 mls/hr Methadone HCl (Methadone) 30 mg PO DAILY [facility] Last Admin: 12/12/18 10:52 Dose: 30 mg Metoclopramide HCl (Reglan) 5 mg IVP ACHS [facility] Last Admin: 12/12/18 13:56 Dose: 5 mg Ondansetron HCl (Zofran Inj) 4 mg IVP Q6 PRN PRN Reason: Nausea/Vomiting Last Admin: 12/10/18 09:44 Dose: 4 mg Pantoprazole Sodium (Protonix Ec Tab) 40 mg PO ACB [facility] Potassium Chloride (Klor-Con 10) 10 meq PO BRK [facility] Last Admin: 12/12/18 10:52 Dose: 10 meq - Labs Labs: 12/12/18 07:00 12/12/18 07:00 PT 12.7 SECONDS (9.4-12.5) H 12/07/18 22:45 INR 1.14 12/07/18 22:45 APTT 36.2 Seconds (26.9-38.3) 12/07/18 22:45 - Constitutional Appears: Non-toxic, No Acute Distress, Chronically Ill - Head Exam Head Exam: ATRAUMATIC, NORMOCEPHALIC - Eye Exam Eye Exam: EOMI, PERRL Pupil Exam: NORMAL ACCOMODATION, PERRL - ENT Exam ENT Exam: Mucous Membranes Moist, Normal External Ear Exam, TM's Normal Bilaterally - Neck Exam Neck Exam: Full ROM, Normal Inspection - Respiratory Exam Respiratory Exam: Clear to Ausculation Bilateral, NORMAL BREATHING PATTERN. absent: Rales, Rhonchi, Wheezes - Cardiovascular Exam Cardiovascular Exam: REGULAR RHYTHM, RRR, +S1, +S2 - GI/Abdominal Exam GI & Abdominal Exam: Distended, Soft, Diminished Bowel Sounds. absent: Tenderness Additional comments: ostomy pink. Colostomy intact. Some output through ostomy - Extremities Exam Extremities Exam: Full ROM, Normal Inspection - Neurological Exam Neurological Exam: Alert, Awake, CN II-XII Intact, Oriented x3 - Psychiatric Exam Psychiatric exam: Normal Affect, Normal Mood - Skin Skin Exam: Intact, Normal Color Assessment and Plan - Assessment and Plan (Free Text) Assessment: 58 yo AA female with partial small bowel obstruction. The patient currently NPO. Conservative therapy for now. Seen by surgery. Giving IV fluids. May still need surgery depending on progress of the conservative therapy. Case discussed with Dr. Child. Avoid opiates. Surgery following. Second episode in the month. Referring to surgery for NPO and potential conservative versus surgical intervention. Patient somewhat comfortable at this time. Low ostomy output. Supportive care. Patient has apparently told surgery that she did not want a surgical procedure done at this time. Advanced to a full liquid diet at this time. Green liquid output in the ostomy bag. Thank you for allowing me to participate in the care of the patient, we will follow with you.
[2018-12-12] MEDS: Dextrose 5%/0.9% NS 1,000 ML IV SCH (22:36)
[2018-12-13] MEDS: Potassium Chloride 20 MEQ in Dextrose 5%/0.9% NS 1,000 ML IV SCH ×2 (05:55→17:54)
[2018-12-13 06:50] LABS: HEMOGLOBIN 11.2 g/dL (12.0-16.0); MEAN CELL VOLUME 76.5 fl (80.0-105.0); MEAN CORPUSCULAR HEMOGLOBIN 24.6 pg (25.0-35.0); MEAN CORPUSCULAR HGB CONC 32.2 g/dl (31.0-37.0); MEAN PLATELET VOLUME 10.7 fl (7.0-11.0); RBC 4.55 10^6/uL (3.5-6.1); RED CELL DISTRIBUTION WIDTH 13.8 % (11.5-14.5); WHITE BLOOD COUNT 7.3 10^3/uL (4.5-11.0)
[2018-12-13 07:41] LABS: CALCIUM 8.5 mg/dL (8.4-10.5); GFR NON-AFRICAN AMERICAN > 60
[2018-12-13 07:50] LABS: BLOOD UREA NITROGEN < 2 mg/dL (7-21)
[2018-12-13] MEDS ORDERED: Potassium Chloride 20 mEq ER Tab PO ONE (08:31)
[2018-12-13] MEDS ORDERED: Magnesium Sulfate 1 gm in D5W 1 GM/100 ML BAG IVPB ONE (08:32)
[2018-12-13] MEDS: Bisacodyl 5mg EC Tab PO SCH (09:08)
[2018-12-13] MEDS: Potassium Chloride 10 mEq ER Tab PO SCH (09:08)
[2018-12-13] MEDS: Pantoprazole 40 mg EC Tab PO SCH (09:08)
--- NOTE | 2018-12-13 10:23 | CP.PCM.PN ---
<Jerry Mcgrath - Last Filed: 12/13/18 10:24> Subjective - Date & Time of Evaluation Date of Evaluation: 12/13/18 Time of Evaluation: 10:22 - Subjective Subjective: SURGERY NOTE FOR DR. CHILD 58F seen and examined at bedside. Patient doing well, states pain is improving. She is tolerating liquid diet, admits to air and stool out of ostomy yesterday. Objective - Vital Signs/Intake and Output Vital Signs (last 24 hours): Temp Pulse Resp BP Pulse Ox 98.3 F 72 18 116/60 99 12/13/18 06:00 12/13/18 06:00 12/13/18 06:00 12/13/18 06:00 12/13/18 06:00 Intake and Output: 12/13/18 12/13/18 06:59 18:59 Intake Total 360 180 Balance 360 180 - Medications Medications: Current Medications Bisacodyl (Dulcolax) 5 mg PO DAILY [facility] Last Admin: 12/13/18 09:08 Dose: 5 mg Potassium Chloride 20 meq/ (Dextrose/Sodium Chloride) 1,010 mls @ 100 mls/hr IV .Q10H6M [facility] Last Admin: 12/13/18 05:55 Dose: 100 mls/hr Methadone HCl (Methadone) 30 mg PO DAILY [facility] Last Admin: 12/13/18 09:07 Dose: 30 mg Metoclopramide HCl (Reglan) 5 mg IVP ACHS [facility] Last Admin: 12/13/18 09:05 Dose: 5 mg Ondansetron HCl (Zofran Inj) 4 mg IVP Q6 PRN PRN Reason: Nausea/Vomiting Last Admin: 12/10/18 09:44 Dose: 4 mg Pantoprazole Sodium (Protonix Ec Tab) 40 mg PO ACB [facility] Last Admin: 12/13/18 09:08 Dose: 40 mg Potassium Chloride (Klor-Con 10) 10 meq PO BRK [facility] Last Admin: 12/13/18 09:08 Dose: 10 meq - Labs Labs: 12/13/18 06:30 12/13/18 06:30 PT 12.7 SECONDS (9.4-12.5) H 12/07/18 22:45 INR 1.14 12/07/18 22:45 APTT 36.2 Seconds (26.9-38.3) 12/07/18 22:45 - Constitutional Appears: Non-toxic, No Acute Distress - Respiratory Exam Respiratory Exam: Clear to Ausculation Bilateral, NORMAL BREATHING PATTERN - Cardiovascular Exam Cardiovascular Exam: REGULAR RHYTHM, +S1, +S2 - GI/Abdominal Exam GI & Abdominal Exam: Distended, Soft. absent: Firm, Guarding, Rigid, Tenderness, Rebound Additional comments: ostomy pink and patent - Neurological Exam Neurological Exam: Alert, Awake - Skin Skin Exam: Dry, Intact, Normal Color, Warm Assessment and Plan - Assessment and Plan (Free Text) Assessment: 58F with abdominal pain, improving, from bowel obstruction which is improving Plan: - monitor abd distension - advance diet as tolerated - pain control - out of bed - monitor ostomy output Further recs per Dr. Mateusz Mcgrath, PGY3 <Perez Child - Last Filed: 12/13/18 15:36> Objective - Vital Signs/Intake and Output Vital Signs (last 24 hours): Temp Pulse Resp BP Pulse Ox 98.3 F 72 18 116/60 99 12/13/18 06:00 12/13/18 06:00 12/13/18 06:00 12/13/18 06:00 12/13/18 06:00 Intake and Output: 12/13/18 12/13/18 06:59 18:59 Intake Total 360 600 Balance 360 600 - Medications Medications: Current Medications Bisacodyl (Dulcolax) 5 mg PO DAILY [facility] Last Admin: 12/13/18 09:08 Dose: 5 mg Potassium Chloride 20 meq/ (Dextrose/Sodium Chloride) 1,010 mls @ 100 mls/hr IV .Q10H6M [facility] Last Admin: 12/13/18 05:55 Dose: 100 mls/hr Methadone HCl (Methadone) 30 mg PO DAILY [facility] Last Admin: 12/13/18 09:07 Dose: 30 mg Metoclopramide HCl (Reglan) 5 mg IVP ACHS [facility] Last Admin: 12/13/18 09:05 Dose: 5 mg Ondansetron HCl (Zofran Inj) 4 mg IVP Q6 PRN PRN Reason: Nausea/Vomiting Last Admin: 12/10/18 09:44 Dose: 4 mg Pantoprazole Sodium (Protonix Ec Tab) 40 mg PO ACB [facility] Last Admin: 12/13/18 09:08 Dose: 40 mg Potassium Chloride (Klor-Con 10) 10 meq PO BRK [facility] Last Admin: 12/13/18 09:08 Dose: 10 meq - Labs Labs: 12/13/18 06:30 12/13/18 06:30 PT 12.7 SECONDS (9.4-12.5) H 12/07/18 22:45 INR 1.14 12/07/18 22:45 APTT 36.2 Seconds (26.9-38.3) 12/07/18 22:45 Assessment and Plan - Assessment and Plan (Free Text) Plan: Rx diet today Cont Reglan/Dulcolax R Mateusz DEL ANGEL FACS
--- NOTE | 2018-12-13 16:40 | CP.PCM.PN ---
Subjective - Date & Time of Evaluation Date of Evaluation: 12/13/18 Time of Evaluation: 15:15 - Subjective Subjective: Internal Medicine Progress Note: December 13, 2018 58 yo AA female with lack of colostomy output, abdominal distension and pain, and vomiting episodes for the past few days. The paitent was [place] [facility] [place] that resolved with non-invasive procedures. CT done showing small bowel obstruction with multiple dilated fluid-filled loops of bowel. 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 Dr. Perez Child performed the colostomy many years ago which resolved her blood pressure and diabetes issues at that time. She has not required treatment for diabetes or hypertension since the colostomy. The patient still with abdominal pain. NPO. Surgery deciding on whether surgery is required for the patient however, as per surgery the patient has been resistant to having surgery performed. Discussed with Dr. Child, the patient will need surgery in the near future. Noted that the patient attempted to order Amharic food last night but convinced otherwise by medical staff. Started on a full liquid diet now. Green liquid output in ostomy. Objective - Vital Signs/Intake and Output Vital Signs (last 24 hours): Temp Pulse Resp BP Pulse Ox 98.5 F 78 18 127/75 100 12/13/18 14:00 12/13/18 14:00 12/13/18 14:00 12/13/18 14:00 12/13/18 14:00 Intake and Output: 12/13/18 12/13/18 06:59 18:59 Intake Total 360 600 Balance 360 600 - Medications Medications: Current Medications Bisacodyl (Dulcolax) 5 mg PO DAILY [facility] Last Admin: 12/13/18 09:08 Dose: 5 mg Potassium Chloride 20 meq/ (Dextrose/Sodium Chloride) 1,010 mls @ 100 mls/hr IV .Q10H6M [facility] Last Admin: 12/13/18 05:55 Dose: 100 mls/hr Methadone HCl (Methadone) 30 mg PO DAILY [facility] Last Admin: 12/13/18 09:07 Dose: 30 mg Metoclopramide HCl (Reglan) 5 mg IVP ACHS [facility] Last Admin: 12/13/18 09:05 Dose: 5 mg Ondansetron HCl (Zofran Inj) 4 mg IVP Q6 PRN PRN Reason: Nausea/Vomiting Last Admin: 12/10/18 09:44 Dose: 4 mg Pantoprazole Sodium (Protonix Ec Tab) 40 mg PO ACB [facility] Last Admin: 12/13/18 09:08 Dose: 40 mg Potassium Chloride (Klor-Con 10) 10 meq PO BRK [facility] Last Admin: 12/13/18 09:08 Dose: 10 meq - Labs Labs: 12/13/18 06:30 12/13/18 06:30 PT 12.7 SECONDS (9.4-12.5) H 12/07/18 22:45 INR 1.14 12/07/18 22:45 APTT 36.2 Seconds (26.9-38.3) 12/07/18 22:45 - Constitutional Appears: Non-toxic, No Acute Distress, Chronically Ill - Head Exam Head Exam: ATRAUMATIC, NORMOCEPHALIC - Eye Exam Eye Exam: EOMI, PERRL Pupil Exam: NORMAL ACCOMODATION, PERRL - ENT Exam ENT Exam: Mucous Membranes Moist, Normal External Ear Exam, TM's Normal Bilaterally - Neck Exam Neck Exam: Full ROM, Normal Inspection - Respiratory Exam Respiratory Exam: Clear to Ausculation Bilateral, NORMAL BREATHING PATTERN. absent: Rales, Rhonchi, Wheezes - Cardiovascular Exam Cardiovascular Exam: REGULAR RHYTHM, RRR, +S1, +S2 - GI/Abdominal Exam GI & Abdominal Exam: Distended, Soft, Diminished Bowel Sounds. absent: Tenderness Additional comments: ostomy pink. Colostomy intact. Some output through ostomy. - Extremities Exam Extremities Exam: Full ROM, Normal Inspection - Neurological Exam Neurological Exam: Alert, Awake, CN II-XII Intact, Oriented x3 - Psychiatric Exam Psychiatric exam: Normal Affect, Normal Mood - Skin Skin Exam: Intact, Normal Color Assessment and Plan - Assessment and Plan (Free Text) Assessment: 58 yo AA female with partial small bowel obstruction. The patient currently NPO. Conservative therapy for now. Seen by surgery. Giving IV fluids. May still need surgery depending on progress of the conservative therapy. Case discussed with Dr. Child. Avoid opiates. Surgery following. Second episode in the month. Referring to surgery for NPO and potential conservative versus surgical intervention. Patient somewhat comfortable at this time. Low ostomy output. Supportive care. Patient has apparently told surgery that she did not want a surgical procedure done at this time. Discussed with Dr. Child, surgery will need to be done in the near future when patient is willing to undergo the surgery. Advanced to a full liquid diet at this time. Green liquid output in the ostomy bag. Diet advanced by surgery. Thank you for allowing me to participate in the care of the patient, we will follow with you.
[2018-12-14] MEDS: Potassium Chloride 20 MEQ in Dextrose 5%/0.9% NS 1,000 ML IV SCH ×2 (03:03→17:07)
[2018-12-14 07:40] LABS: BASO # 0.02 K/mm3 (0.0-2.0); BASO % 0.3 % (0.0-3.0); EOS # 0.1 (0.0-0.7); EOS % 1.5 % (1.5-5.0); HEMOGLOBIN 10.8 g/dL (12.0-16.0); LYMPH # 2.5 (1.2-3.4); LYMPH % 42.2 % (22.0-35.0); MEAN CELL VOLUME 78.3 fl (80.0-105.0); MEAN CORPUSCULAR HEMOGLOBIN 24.7 pg (25.0-35.0); MEAN CORPUSCULAR HGB CONC 31.6 g/dl (31.0-37.0); MEAN PLATELET VOLUME 10.1 fl (7.0-11.0); MONO # 0.3 (0.1-0.6); MONO % 4.5 % (1.0-6.0); RBC 4.37 10^6/uL (3.5-6.1); RED CELL DISTRIBUTION WIDTH 14.3 % (11.5-14.5)
[2018-12-14 07:53] LABS: ALB/GLOB RATIO 1.2 (1.1-1.8); ALBUMIN 3.2 g/dL (3.0-4.8); ALT/SGPT 25 U/L (7-56); AST/SGOT 29 U/L (14-36); BLOOD UREA NITROGEN 4 mg/dL (7-21); CALCIUM 8.4 mg/dL (8.4-10.5); GFR NON-AFRICAN AMERICAN > 60
--- NOTE | 2018-12-14 08:12 | CP.PCM.PN ---
Subjective - Date & Time of Evaluation Date of Evaluation: 12/14/18 Time of Evaluation: 08:09 - Subjective Subjective: General Surgery: Dr Child Pt S&E. Advanced to regular diet yesterday, tolerated without emesis. Continues to have ostomy output. Distension less. No additional complaints. Pt requesting additional pain meds over night and relieved with toradol. Objective - Vital Signs/Intake and Output Vital Signs (last 24 hours): Temp Pulse Resp BP Pulse Ox 98 F 87 15 120/71 99 12/14/18 06:00 12/14/18 06:00 12/14/18 06:00 12/14/18 06:00 12/14/18 06:00 Intake and Output: 12/14/18 12/14/18 06:59 18:59 Intake Total 620 Output Total 200 Balance 420 - Medications Medications: Current Medications Bisacodyl (Dulcolax) 5 mg PO DAILY [facility] Last Admin: 12/13/18 09:08 Dose: 5 mg Potassium Chloride 20 meq/ (Dextrose/Sodium Chloride) 1,010 mls @ 100 mls/hr IV .Q10H6M [facility] Last Admin: 12/14/18 03:03 Dose: 100 mls/hr Methadone HCl (Methadone) 30 mg PO DAILY [facility] Last Admin: 12/13/18 09:07 Dose: 30 mg Metoclopramide HCl (Reglan) 5 mg IVP ACHS [facility] Last Admin: 12/13/18 21:00 Dose: 5 mg Ondansetron HCl (Zofran Inj) 4 mg IVP Q6 PRN PRN Reason: Nausea/Vomiting Last Admin: 12/13/18 22:46 Dose: 4 mg Pantoprazole Sodium (Protonix Ec Tab) 40 mg PO ACB [facility] Last Admin: 12/13/18 09:08 Dose: 40 mg Potassium Chloride (Klor-Con 10) 10 meq PO BRK [facility] Last Admin: 12/13/18 09:08 Dose: 10 meq - Labs Labs: 12/14/18 07:30 12/14/18 07:30 PT 12.7 SECONDS (9.4-12.5) H 12/07/18 22:45 INR 1.14 12/07/18 22:45 APTT 36.2 Seconds (26.9-38.3) 12/07/18 22:45 - Constitutional Appears: Non-toxic, Chronically Ill - Respiratory Exam Respiratory Exam: absent: Accessory Muscle Use, Respiratory Distress - Cardiovascular Exam Cardiovascular Exam: absent: Tachycardia - GI/Abdominal Exam GI & Abdominal Exam: Distended (improved), Soft. absent: Guarding, Rigid, Tenderness Assessment and Plan - Assessment and Plan (Free Text) Assessment: 58F w/ recurrent chronic intestinal obstruction; resolving Plan: -pt tolerating regular diet - clear for discharge - can f/u in clinic as outpatient PRN will d/w Dr Mateusz Nelson, PGY4
--- NOTE | 2018-12-14 08:17 | CP.PCM.PCO ---
Physician Communication Note - Physician Communication Note Physician Communication Note: H/H stable/Custocele rx pessary/no surgical rx needed
[2018-12-14] MEDS: Pantoprazole 40 mg EC Tab PO SCH (10:09)
[2018-12-14] MEDS: Bisacodyl 5mg EC Tab PO SCH (10:09)
[2018-12-14] MEDS: Potassium Chloride 10 mEq ER Tab PO SCH (10:09)
--- NOTE | 2018-12-14 16:45 | CP.PCM.PN ---
Subjective - Date & Time of Evaluation Date of Evaluation: 12/14/18 Time of Evaluation: 15:45 - Subjective Subjective: Internal Medicine Progress Note: December 14, 2018 58 yo AA female with lack of colostomy output, abdominal distension and pain, and vomiting episodes for the past few days. The paitent was [place] [facility] that resolved with non-invasive procedures. CT done showing small bowel obstruction with multiple dilated fluid-filled loops of bowel. 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 Dr. Perez Child performed the colostomy many years ago which resolved her blood pressure and diabetes issues at that time. She has not required treatment for diabetes or hypertension since the colostomy. The patient still with abdominal pain. NPO. Surgery deciding on whether surgery is required for the patient however, as per surgery the patient has been resistant to having surgery performed. Discussed with Dr. Child, the patient will need surgery in the near future. Noted that the patient attempted to order Occitan food last night but convinced otherwise by medical staff. Started on a full diet now. Green liquid output in ostomy. Objective - Vital Signs/Intake and Output Vital Signs (last 24 hours): Temp Pulse Resp BP Pulse Ox 98 F 74 19 129/62 100 12/14/18 14:00 12/14/18 14:00 12/14/18 14:00 12/14/18 14:00 12/14/18 14:00 Intake and Output: 12/14/18 12/14/18 06:59 18:59 Intake Total 620 Output Total 200 Balance 420 - Medications Medications: Current Medications Bisacodyl (Dulcolax) 5 mg PO DAILY [facility] Last Admin: 12/14/18 10:09 Dose: 5 mg Potassium Chloride 20 meq/ (Dextrose/Sodium Chloride) 1,010 mls @ 100 mls/hr IV .Q10H6M [facility] Last Admin: 12/14/18 03:03 Dose: 100 mls/hr Methadone HCl (Methadone) 30 mg PO DAILY [facility] Last Admin: 12/14/18 10:09 Dose: 30 mg Metoclopramide HCl (Reglan) 5 mg PO ACHS [facility] Ondansetron HCl (Zofran Inj) 4 mg IVP Q6 PRN PRN Reason: Nausea/Vomiting Last Admin: 05/22/19 22:46 Dose: 4 mg Pantoprazole Sodium (Protonix Ec Tab) 40 mg PO ACB [facility] Last Admin: 12/14/18 10:09 Dose: 40 mg Potassium Chloride (Klor-Con 10) 10 meq PO BRK [facility] Last Admin: 12/14/18 10:09 Dose: 10 meq - Labs Labs: 12/14/18 07:30 12/14/18 07:30 PT 12.7 SECONDS (9.4-12.5) H 12/07/18 22:45 INR 1.14 12/07/18 22:45 APTT 36.2 Seconds (26.9-38.3) 12/07/18 22:45 - Constitutional Appears: Non-toxic, No Acute Distress, Chronically Ill - Head Exam Head Exam: ATRAUMATIC, NORMOCEPHALIC - Eye Exam Eye Exam: EOMI, PERRL Pupil Exam: NORMAL ACCOMODATION, PERRL - ENT Exam ENT Exam: Mucous Membranes Moist, Normal External Ear Exam, TM's Normal Bilaterally - Neck Exam Neck Exam: Full ROM, Normal Inspection - Respiratory Exam Respiratory Exam: Clear to Ausculation Bilateral, NORMAL BREATHING PATTERN. absent: Rales, Rhonchi, Wheezes - Cardiovascular Exam Cardiovascular Exam: REGULAR RHYTHM, RRR, +S1, +S2 - GI/Abdominal Exam GI & Abdominal Exam: Distended, Soft, Normal Bowel Sounds. absent: Tenderness Additional comments: ostomy pink. Colostomy intact. Some output through ostomy. - Extremities Exam Extremities Exam: Full ROM, Normal Inspection - Neurological Exam Neurological Exam: Alert, Awake, CN II-XII Intact, Oriented x3 - Psychiatric Exam Psychiatric exam: Normal Affect, Normal Mood - Skin Skin Exam: Intact, Normal Color Assessment and Plan - Assessment and Plan (Free Text) Assessment: 58 yo AA female with partial small bowel obstruction. The patient currently NPO. Conservative therapy for now. Seen by surgery. Giving IV fluids. May still need surgery depending on progress of the conservative therapy. Case discussed with Dr. Child. Avoid opiates. Surgery following. Second episode in the month. Referring to surgery for NPO and potential conservative versus surgical intervention. Patient somewhat comfortable at this time. Low ostomy output. Supportive care. Patient has apparently told surgery that she did not want a surgical procedure done at this time. Discussed with Dr. Child, surgery will need to be done in the near future when patient is willing to undergo the surgery. Advanced to a full diet at this time. Green liquid output in the ostomy bag. Diet advanced by surgery. Cleared by surgery for discharge. Possible discharge home in AM. Thank you for allowing me to participate in the care of the patient, we will follow with you.
[2018-12-15] MEDS: Potassium Chloride 20 MEQ in Dextrose 5%/0.9% NS 1,000 ML IV SCH (01:05)
[2018-12-15 07:34] VITALS: BP 116/73; PULSE 80; RESP 16; TEMP 98.1; O2SAT 97
[2018-12-15] MEDS: Pantoprazole 40 mg EC Tab PO SCH (08:02)
[2018-12-15] MEDS: Potassium Chloride 10 mEq ER Tab PO SCH (08:02)
[2018-12-15] MEDS: Bisacodyl 5mg EC Tab PO SCH (09:38)
--- NOTE | 2018-12-15 16:48 | CP.PCM.DIS ---
Provider - Provider Date of Admission: 12/08/18 00:40 Attending physician: Perez Augustin MD Primary care physician: Perez Augustin MD Consults: 12/08/18 00:20 General Surgery Consult Stat Comment: Consulting Provider: Perez Child Consulting Physician: Perez Child Reason for Consult: bowel obstruction Time Spent in preparation of Discharge (in minutes): 35 Hospital Course - Lab Results Lab Results: Most Recent Lab Values WBC 6.0 10^3/uL (4.5-11.0) 12/14/18 07:30 RBC 4.37 10^6/uL (3.5-6.1) 12/14/18 07:30 Hgb 10.8 g/dL (12.0-16.0) L 12/14/18 07:30 Hct 34.2 % (36.0-48.0) L 12/14/18 07:30 MCV 78.3 fl (80.0-105.0) L 12/14/18 07:30 MCH 24.7 pg (25.0-35.0) L 12/14/18 07:30 MCHC 31.6 g/dl (31.0-37.0) 12/14/18 07:30 RDW 14.3 % (11.5-14.5) 12/14/18 07:30 Plt Count 204 10^3/uL (120.0-450.0) 12/14/18 07:30 MPV 10.1 fl (7.0-11.0) 12/14/18 07:30 Neut % (Auto) 51.5 % (50.0-68.0) 12/14/18 07:30 Lymph % (Auto) 42.2 % (22.0-35.0) H 12/14/18 07:30 [place] % (Auto) 4.5 % (1.0-6.0) 12/14/18 07:30 Eos % (Auto) 1.5 % (1.5-5.0) 12/14/18 07:30 Baso % (Auto) 0.3 % (0.0-3.0) 12/14/18 07:30 Lymph # (Auto) 2.5 (1.2-3.4) 12/14/18 07:30 [place] # (Auto) 0.3 (0.1-0.6) 12/14/18 07:30 Eos # (Auto) 0.1 (0.0-0.7) 12/14/18 07:30 Baso # (Auto) 0.02 K/mm3 (0.0-2.0) 12/14/18 07:30 Absolute Neuts (auto) 3.09 (1.4-6.5) 12/14/18 07:30 PT 12.7 SECONDS (9.4-12.5) H 12/07/18 22:45 INR 1.14 12/07/18 22:45 APTT 36.2 Seconds (26.9-38.3) 12/07/18 22:45 pO2 52 mm/Hg (30-55) 12/07/18 22:45 VBG pH 7.39 (7.32-7.43) 12/07/18 22:45 VBG pCO2 50.0 (40-60) 12/07/18 22:45 VBG HCO3 30.3 mmol/l (21-28) H 12/07/18 22:45 VBG Total CO2 31.8 mmol.L (22-28) H 12/07/18 22:45 VBG O2 Sat (Calc) 88.3 % (40-65) H 12/07/18 22:45 VBG Base Excess 4.2 mmol/L (0.0-2.0) H 12/07/18 22:45 VBG Potassium 3.8 mmol/L (3.6-5.2) 12/07/18 22:45 Sodium 140.0 mmol/L (132-148) 12/07/18 22:45 Chloride 102.0 mmol/L (98-107) 12/07/18 22:45 Glucose 120 mg/dl (65-105) H 12/07/18 22:45 Lactate 1.6 mmol/L (0.7-2.1) 12/07/18 22:45 FiO2 21.0 % 12/07/18 22:45 Sodium 136 mmol/L (132-148) 12/14/18 07:30 Potassium 3.8 mmol/L (3.6-5.0) 12/14/18 07:30 Chloride 101 mmol/L (98-107) 12/14/18 07:30 Carbon Dioxide 28 mmol/L (21-33) 12/14/18 07:30 Anion Gap 11 (10-20) 12/14/18 07:30 BUN 4 mg/dL (7-21) L 12/14/18 07:30 Creatinine 0.5 mg/dl (0.7-1.2) L 12/14/18 07:30 Est GFR ( Amer) > 60 12/14/18 07:30 Est GFR (Non-Af Amer) > 60 12/14/18 07:30 POC Glucose (mg/dL) 122 mg/dL (65-110) H 12/12/18 06:38 Random Glucose 104 mg/dL (70-110) 12/14/18 07:30 Calcium 8.4 mg/dL (8.4-10.5) 12/14/18 07:30 Phosphorus 2.8 mg/dL (2.5-4.5) 12/13/18 06:30 Magnesium 1.8 mg/dL (1.7-2.2) 12/13/18 06:30 Total Bilirubin 0.4 mg/dL (0.2-1.3) 12/14/18 07:30 AST 29 U/L (14-36) 12/14/18 07:30 ALT 25 U/L (7-56) 12/14/18 07:30 Alkaline Phosphatase 58 U/L (38-126) 12/14/18 07:30 Total Protein 6.0 g/dL (5.8-8.3) 12/14/18 07:30 Albumin 3.2 g/dL (3.0-4.8) 12/14/18 07:30 Globulin 2.8 gm/dL 12/14/18 07:30 Albumin/Globulin Ratio 1.2 (1.1-1.8) 12/14/18 07:30 Lipase 78 U/L (23-300) 12/08/18 00:25 Venous Blood Potassium 3.8 mmol/L (3.6-5.2) 12/07/18 22:45 Blood Type A POSITIVE 12/08/18 00:25 Antibody Screen Negative 12/08/18 00:25 BBK History Checked Patient has bt 12/08/18 00:25 - Hospital Course Hospital Course: Internal Medicine Progress Note/Discharge Note: December 15, 2018 58 yo AA female with lack of colostomy output, abdominal distension and pain, and vomiting episodes for the past few days. The paitent was recently in [facility] [place] for SBO that resolved with non-invasive procedures. CT done showing small bowel obstruction with multiple dilated fluid-filled loops of bowel. 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 Dr. Perez Child performed the colostomy many years ago which resolved her blood pressure and diabetes issues at that time. She has not required treatment for diabetes or hypertension since the colostomy. The patient still with abdominal pain. NPO. Surgery deciding on whether surgery is required for the patient however, as per surgery the patient has been resistant to having surgery performed. Discussed with Dr. Child, the patient will need surgery in the near future. Patient improved with conservative treatment. Dr. Child had discussed surgical options with the patient. She is to follow up with Dr. Child in the outpatient for scheduling of surgery in the very near future. Started on a full diet now. Green liquid output in ostomy. Discharge Exam - Head Exam Head Exam: ATRAUMATIC, NORMOCEPHALIC - Eye Exam Eye Exam: EOMI, PERRL Pupil Exam: NORMAL ACCOMODATION, PERRL - ENT Exam ENT Exam: Mucous Membranes Moist, Normal External Ear Exam, TM's Normal Bilaterally - Neck Exam Neck exam: Full Rom, Normal Inspection - Respiratory Exam Respiratory Exam: Clear to PA & Lateral, NORMAL BREATHING PATTERN. absent: Rhonchi, Wheezes, Respiratory Distress - Cardiovascular Exam Cardiovascular Exam: REGULAR RHYTHM, RRR, +S1, +S2 - GI/Abdominal Exam GI & Abdominal Exam: Distended, Normal Bowel Sounds, Soft Additional comments: ostomy pink. Colostomy intact. Some output through ostomy. - Extremities Exam Extremities exam: full ROM, normal inspection - Neurological Exam Neurological exam: Alert, CN II-XII Intact, Oriented x3 - Psychiatric Exam Psychiatric exam: Normal Affect, Normal Mood - Skin Skin Exam: Intact, Normal Color Discharge Plan - Discharge Medications Prescriptions: Bisacodyl [Ducolax] 5 mg PO DAILY #30 ect traMADol [Ultram] 50 mg PO TID PRN #15 tab PRN Reason: Pain, Severe (8-10) - Follow Up Plan Condition: GUARDED Disposition: HOME/ ROUTINE Instructions: Complex Regional Pain Syndrome, Mechanical Bowel Obstruction (DC), Small Bowel Obstruction (DC), Colon Stricture (DC), Colostomy Care Additional Instructions: 58 yo AA female with partial small bowel obstruction. The patient currently NPO. Conservative therapy for now. Seen by surgery. Giving IV fluids. May still need surgery depending on progress of the conservative therapy. Case discussed with Dr. Child. Avoid opiates. Surgery following. Second episode in the month. Referring to surgery for NPO and potential conservative versus surgical intervention. Patient somewhat comfortable at this time. Low ostomy output. Supportive care. Patient has apparently told surgery that she did not want a surgical procedure done at this time. Discussed with Dr. Child, surgery will need to be done in the near future when patient is willing to undergo the surgery. The patient with ostomy output. Still with abdominal distension. The patient will follow with Dr. Child as an outpatient. Will give patient her monthly Methadone Script # [id number] for 30mg Q12hrs Disp # 40 doses. You have been discharged from [facility]. Please f/u in clinic with Dr Child and Dr. Augustin. If you have any further episodes of vomiting or distress please go to the nearest emergency room.
== END 2018-12-15 18:13 | disposition home or self-care (01) | DRG 180 ==
LOC: ED 21:19 → ERH 12-08 00:40 → 5RNO 12-08 03:05
PROVIDERS: ADMIT Internal Medicine Infectious Disease; ATTEND Internal Medicine Infectious Disease
DX: K56.600 Partial intestinal obstruction, unspecified as to cause (principal); F11.20 Opioid dependence, uncomplicated; K56.7 Ileus, unspecified; E11.9 Type 2 diabetes mellitus without complications; G90.523 Complex regional pain syndrome I of lower limb, bilateral; Z85.038 Personal history of other malignant neoplasm of large intestine; Z88.0 Allergy status to penicillin; Z93.3 Colostomy status; Z88.2 Allergy status to sulfonamides